=== PATIENT | male | born 1955 | race Caucasian/White ===

== ENCOUNTER 2016-09-05 10:12 | Inpatient (IN) | payer OTHER ==
[~2016-09-05] VITALS: Ht 181.9 cm; Wt 74.5 kg
[2016-09-05] MEDS ORDERED: PROP80TA PO (10:38)
[2016-09-05] MEDS ORDERED: AMLO10TA2 PO (10:38)
[2016-09-05] MEDS ORDERED: ASPI1TAB69 PO (10:39)
[2016-09-05] MEDS ORDERED: CHLO25TA2 PO (10:39)
[2016-09-12] VITALS (7 sets, daily range): BP systolic 140–186; BP diastolic 54–80; PULSE 39–74; RESP 16–18; TEMP 97.7–98.5; O2SAT 94–98
[2016-09-12] MEDS ORDERED: POVIDONE IODINE 5% (ANTISEPSIS KIT) 4 APPLICATIONS EACH NARE PRN (06:15)
[2016-09-12] MEDS ORDERED: SODIUM CHLORID 0.9% 500 ML IV PRN (06:15)
[2016-09-12] MEDS ORDERED: METOPROLOL TARTRATE 25 MG TAB PO PRN (06:15)
[2016-09-12] MEDS ORDERED: LACTATED RINGER'S 1000 ML IV PRN (06:15)
[2016-09-12] MEDS ORDERED: INSULIN HUMAN REGULAR 1,000 UNITS/10 ML VIAL SQ PRN (06:15)
[2016-09-12] MEDS ORDERED: CHLORHEXIDINE GLUCONATE 2 % 1 PACK (2 CLOTHS) TOPICAL PRN (06:15)
[2016-09-12] MEDS ORDERED: HEPARIN SODIUM - IV 10,000 UNITS/10 ML VIAL ONE (06:46)
[2016-09-12] MEDS ORDERED: PROTAMINE SULFATE 50 MG/5 ML VIAL ONE (06:46)
[2016-09-12] MEDS ORDERED: BUPIVACAINE/EPINEPHRINE 0.5% 50 ML VIAL ONE (06:48)
[2016-09-12] MEDS ORDERED: THROMBIN (TOPICAL) 20,000 UNIT SPRAY KIT ONE (07:14)
[2016-09-12] MEDS ORDERED: THROMBIN (TOPICAL) 5,000 UNIT VIAL ONE (07:16)
[2016-09-12] MEDS ORDERED: ACETAMINOPHEN 1000 MG/100 ML VIAL IV ONE (07:59)
[2016-09-12] MEDS ORDERED: THROMBIN (TOPICAL) 5,000 UNIT VIAL OTHER ONE (08:00)
[2016-09-12] MEDS ORDERED: FAMOTIDINE 20 MG/2 ML VIAL ONE (08:00)
[2016-09-12] MEDS ORDERED: LIDOCAINE HCL 1% 30 ML VIAL OTHER ONE (08:00)
[2016-09-12] MEDS ORDERED: HEPARIN SODIUM - IV 10,000 UNITS/10 ML VIAL IV ONE (08:00)
[2016-09-12] MEDS ORDERED: GELFOAM SIZE 100 OTHER ONE (08:00)
[2016-09-12] MEDS ORDERED: HEPARIN SODIUM - SQ 10,000 UNITS/ML VIAL OTHER ONE (08:00)
[2016-09-12] MEDS ORDERED: PROTAMINE SULFATE 50 MG/5 ML VIAL IV ONE (08:00)
[2016-09-12] MEDS ORDERED: MIDAZOLAM HCL 2 MG/2 ML VIAL ONE ×2 (08:00→12:11)
[2016-09-12] MEDS ORDERED: DEXAMETHASONE SOD PHOS 4 MG/ML VIAL ONE (08:00)
[2016-09-12] MEDS ORDERED: ceFAZolin 2 GM PREMIX 50 ML ONE (08:06)
[2016-09-12] MEDS ORDERED: LIDOCAINE HCL 1% 20 ML VIAL ONE (08:35)
[2016-09-12] MEDS ORDERED: SUGAMMADEX SODIUM 200 MG/2 ML VIAL IV PUSH ONE ×2 (11:21)
--- NOTE | 2016-09-12 11:36 | HHI.PR ---
Immediate Post Op Note Procedure Date: September 12, 2016 Pre Op Diagnosis: (1) Carotid stenosis, left Post Op Diagnosis: (1) Carotid stenosis, left Surgeon: Jenaro Townsend Community Action Worker(s): Amando Yeboah Procedure: Left CEA Findings: High grade plaque Additional Information: NA Complications: None Specimen(s) removed: Plaque Estimated blood loss: 100 cc Anesthesia: General, Analgesia Drains: None Fluids: 1800 cc crytsalloid IVF Tourniquet time (min at mmHg) NA Patient to: Other Patient Condition: Good Implant/Devices: Other Date/Time of Procedure: Other Jenaro Townsend DO September 12, 2016 11:36
[2016-09-12] MEDS ORDERED: SODIUM CHLORIDE 0.9% FLUSH 10 ML FLUSH IV FLUSH PRN (11:45)
[2016-09-12] MEDS ORDERED: Post-op Orders (for Pharmacy) MISC OTHER ONE (11:45)
[2016-09-12] MEDS ORDERED: LACTATED RINGER'S 1000 ML INJ 1,000 ML IV ONE (12:00)
[2016-09-12] MEDS ORDERED: ONDANSETRON HCL 4 MG/2 ML VIAL IV PUSH ONE (12:00)
[2016-09-12] MEDS ORDERED: PROPOFOL 200 MG/20 ML AMP IV ONE (12:00)
[2016-09-12] MEDS ORDERED: SODIUM CHLORID 0.9% 500 ML INJ 500 ML IV ONE (12:00)
[2016-09-12] MEDS ORDERED: ePHEDrine/NS 25 MG/5 ML SYR IV ONE (12:00)
[2016-09-12] MEDS ORDERED: SODIUM CHLOR 0.9% 250 ML INJ 250 ML IV ONE (12:00)
[2016-09-12] MEDS ORDERED: fentaNYL CITRATE 250 MCG/5 ML AMP ONE (12:11)
[2016-09-12] MEDS ORDERED: ONDANSETRON HCL 4 MG/2 ML VIAL IV PUSH PRN (15:15)
--- NOTE | 2016-09-12 15:29 | PD.VS.PN ---
Subjective POD #: 0 Procedure(s): L CEA Subjective/Hospital Course Pt c/o Mild discomfort CN 2-12 intact Pt alert and in NAD (Antoinette Dias) Objective Vitals/I&O Date Time Temp Pulse Resp B/P Pulse Ox O2 Delivery O2 Flow Rate FiO2 09/12/16 07:13 97.8 42 16 186/76 98 Exam: GCS 15 L Neck incision intact with surgical glue + S1,S2 CN 2-12 intact Pt w/o any neurological deficits Incisions: L side of neck/Intact with ecchymosis present at the incision line Laboratory Laboratory Tests Test 09/12/16 06:55 Blood Type O POSITIVE Antibody Screen NEGATIVE Blood Bank Comment (Antoinette Dias) Assessment and Plan Assessment: (1) Carotid stenosis, left Status: Acute Plan Plan PT/OOB tomorrow am D/C wills Clear liquid diet tonight Am labs Antoinette MARTE [facility]/Seriously [phone] (Antoinette Dias) Plan Patient is doing well. I agree with above. Possible DC 5/12 if urinates, keyla PO and neurologically intact. (Jenaro Townsend DO) Antoinette Dias September 12, 2016 15:29 Jenaro Townsend DO September 12, 2016 17:01
[2016-09-12] MEDS ORDERED: MORPHINE SULFATE 4 MG/ML INJ IV PRN (16:00)
[2016-09-12] MEDS: oxyCODONE/ACETAMINOPHEN 5 MG/325 MG TAB PO PRN (21:26)
[2016-09-12] MEDS: SODIUM CHLORIDE 0.9% FLUSH 10 ML FLUSH IV FLUSH SCH (22:12)
[2016-09-12] MEDS: hydrALAZINE HCL 20 MG/ML VIAL IV PUSH PRN (22:12)
[2016-09-13] VITALS (8 sets, daily range): BP systolic 128–182; BP diastolic 48–75; PULSE 47–68; RESP 16–18; TEMP 97–98.2; O2SAT 92–96
[2016-09-13] MEDS: oxyCODONE/ACETAMINOPHEN 5 MG/325 MG TAB PO PRN (04:15)
[2016-09-13 05:24] LABS: BICARBONATE 32.4 MEQ/L (21.0-32.0)
[2016-09-13] MEDS: SODIUM CHLORIDE 0.9% FLUSH 10 ML FLUSH IV FLUSH SCH ×2 (07:55→21:00)
[2016-09-13] MEDS: hydrALAZINE HCL 20 MG/ML VIAL IV PUSH PRN ×2 (07:55→09:15)
[2016-09-13] MEDS ORDERED: POTASSIUM CHLORIDE 25 MEQ EFFERVESCENT TAB PO ONE (09:30)
[2016-09-13] MEDS: cloNIDine HCL 0.2 MG TAB PO PRN (09:42)
--- NOTE | 2016-09-13 09:49 | PD.VS.PN ---
Subjective Subjective/Hospital Course Pt c/o frontal distribution headaches. Objective Vitals/I&O Date Time Temp Pulse Resp B/P Pulse Ox O2 Delivery O2 Flow Rate FiO2 09/13/16 09:23 95 Nasal Cannula 2.00 09/13/16 07:00 97.6 47 16 161/75 96 182/68 09/13/16 07:00 47 09/13/16 03:00 47 09/13/16 03:00 97.0 59 18 158/74 95 151/54 09/12/16 23:00 48 09/12/16 23:00 97.7 48 18 159/76 97 165/54 09/12/16 22:35 95 Nasal Cannula 2.00 09/12/16 19:00 51 09/12/16 19:00 98.1 74 16 178/78 95 178/69 09/12/16 16:04 45 09/12/16 15:47 98.5 43 16 151/80 94 165/71 09/12/16 14:00 98.0 39 18 140/73 94 09/12/16 14:00 39 Physical Exam left neck incision intact. CN2-12 intact. Laboratory Laboratory Tests Test 09/13/16 04:25 Sodium Level 136 Potassium Level 3.0 Chloride Level 96 Carbon Dioxide Level 32.4 Anion Gap 8 Blood Urea Nitrogen 22 Creatinine 0.99 Estimat Glomerular Filtration 76 Rate Random Glucose 126 Calcium Level 8.6 Assessment and Plan Assessment: (1) Carotid stenosis, left Status: Acute Plan Patient with post-op headaches after a left CEA. Otherwise, neurologically intact. May be hyperperfusion with hypertension. Will get stat CTA of head and neck. Hydralazine is not adequate so will place on a cardiene drip. Goal Systolic blood pressure less than 100mmHG. Will keep in ICU at this point. Spoke with the master ship, Dr. Yu. Jenaro Townsend DO, FACS [facility] SWATHI/Jenaro Petersen DO September 13, 2016 09:49
[2016-09-13] MEDS ORDERED: PNEUMOCOCCAL POLYVALENT INJ 25 MCG/0.5 ML SYR IM ONE (10:00)
[2016-09-13] MEDS ORDERED: IOHEXOL 350 MG/ML 10 ML VIAL (for RAD DIAG) IV ONE (10:16)
--- NOTE | 2016-09-13 11:00 | RADRPT ---
EXAM DATE/TIME: 09/13/2016 09:58 [facility] COMPARISON: No previous studies available for comparison. INDICATIONS : New onset headache. IV CONTRAST: 74 cc Omnipaque 350 (iohexol) IV; Cumulative dose for multiple exams. RADIATION DOSE: 14.85 CTDIvol (mGy); Combined studies MEDICAL HISTORY : Hypertension. Carotid stenosis. SURGICAL HISTORY : Left carotid surgery. ENCOUNTER: Initial ACUITY: 1 day PAIN SCALE: 4/10 LOCATION: Cranial TECHNIQUE: Volumetric scanning was performed using a multi-row detector CT scanner. The data was post processed with a variety of visualization algorithms including full volume maximum intensity projection, multi -planar sliding thin slab reformation, curved planar reformation, and surface rendering techniques. Using automated exposure control and adjustment of the mA and/or kV according to patient size, radiat ion dose was kept as low as reasonably achievable to obtain optimal diagnostic quality images. FINDINGS: CTA of the brain was performed in this patient status post endarterectomy with a headache. There is no evidence for major branch vessel occlusion, aneurysm or vascular displacement. Carotid i s patent to the cavernous sinus. There is no parenchymal hemorrhage. Ventricular size is appropriate. CONCLUSION: Negative CTA of the brain. Lexx Sanz MD FACR on September 13, 2016 at 10:45 Board Certified Radiologist. This report was verified electronically.
--- NOTE | 2016-09-13 11:30 | RADRPT ---
EXAM DATE/TIME: 09/13/2016 09:58 [facility] COMPARISON: No previous studies available for comparison. INDICATIONS : New onset of headache. IV CONTRAST: 74 cc Omnipaque 350 (iohexol) IV; Cumulative dose for multiple exams. RADIATION DOSE: 14.85 CTDIvol (mGy); Combined studies MEDICAL HISTORY : Hypertension. Carotid stenosis. SURGICAL HISTORY : Left carotid surgery. ENCOUNTER: Initial ACUITY: 1 day PAIN SCALE: 5/10 LOCATION: Left neck Elevated flow velocities and ICA/CCA ratios have been found to correlate with increased degrees of vessel stenosis, calculated as percentage of diameter relative to a normal segment of distal ICA/CCA. TECHNIQUE: Volumetric scanning was performed using a multirow detector CT scanner. The data was post processed with a variety of visualization algorithms including full-volume maximum intensity projection, multip lanar sliding thin-slab reformation, curved-planar reformation, and surface-rendering techniques. Us ing automated exposure control and adjustment of the mA and/or kV according to patient size, radiatio n dose was kept as low as reasonably achievable to obtain optimal diagnostic quality images. FINDINGS: Patient is status post carotid endarterectomy on the left. Subcutaneous air is present along with small amount of air in the operative site. Endarterectomy sit e is widely patent. Extensive calcification is present on the right unchanged from the preoperative study. The percentag e of stenosis is on the order 70%. CONCLUSION: 1. Small amount of air in the operative site on the left. 2. Stenosis on the right appears hemodynamically significant. Lexx Sanz MD FACR on September 13, 2016 at 11:22 Board Certified Radiologist. This report was verified electronically.
[2016-09-13] MEDS ORDERED: SODIUM PHOSPHATE INJ 30 MMOL in SODIUM CHLOR 0.9% 250 ML INJ 240 ML IV PRN (12:00)
[2016-09-13] MEDS ORDERED: MAGNESIUM OXIDE 400 MG TAB PO PRN (12:00)
[2016-09-13] MEDS ORDERED: POTASSIUM CHLORIDE 25 MEQ EFFERVESCENT TAB PO PRN (12:00)
[2016-09-13] MEDS ORDERED: POTASSIUM PHOSPHATE MONOBASIC 500 MG TAB PO/TUBE PRN (12:00)
[2016-09-13] MEDS ORDERED: POTASSIUM PHOSPHATE MONOBASIC 500 MG TAB PO PRN (12:00)
[2016-09-13] MEDS ORDERED: POTASSIUM CHLOR 20 MEQ PREMIX 100 ML IV PRN ×2 (12:00)
[2016-09-13] MEDS ORDERED: MAGNESIUM SULFATE INJ 4 GM in SODIUM CHLORIDE 0.9% INJ 92 ML IV PRN (12:00)
[2016-09-13] MEDS ORDERED: MAGNESIUM SULFATE INJ 2 GM in SODIUM CHLORIDE 0.9% INJ 96 ML IV PRN (12:00)
[2016-09-13] MEDS ORDERED: POTASSIUM CHLOR 40 MEQ PREMIX 100 ML IV PRN ×2 (12:00)
--- NOTE | 2016-09-13 12:48 | MB ---
cc: SUMMER MEZA M.D. DATE OF CONSULTATION: 09/13/2016 DATE OF : 1955 HISTORY OF PRESENT ILLNESS The patient is a 61-year-old male with past medical history of hypertension, who was admitted yesterday for left carotid stenosis and the patient underwent left carotid endarterectomy by Dr. Townsend. He had EBL of 100 mL and received 1.8 liters of crystalloids. The patient was complaining of frontal headaches and he underwent a stat. CTA of the brain with IV contrast which showed no evidence of any parenchymal hemorrhage. Also CTA of the neck showed a small amount of air in the operative site on the left. The patient was found hypertensive overnight and was started on a Cardene drip currently at 5 mg an hour. His blood pressure overall improved with current blood pressure of 132/53. Critical Care Medicine was consulted for critical care management. The patient denies any blurred vision, chest pain, shortness of breath or any constitutional symptoms. In addition he denies any GI symptoms. PAST MEDICAL HISTORY 1. Hypertension. 2. Left carotid stenosis. PAST SURGICAL HISTORY Status post left carotid endarterectomy on September 12, 2016. ALLERGIES No known drug allergies. FAMILY HISTORY Noncontributory. MEDICATIONS Reported medications include: 1. Aspirin. 2. Amlodipine. 3. Propranolol. 4. Chlorthalidone. REVIEW OF SYSTEMS As per HPI. The Rest of a review of systems is unremarkable. PHYSICAL EXAMINATION GENERAL: A 61-year-old male lying in bed in no acute respiratory distress. VITAL SIGNS: Afebrile. Pulse 61, blood pressure 132/53, saturation 93-95% on 2 liters of oxygen. HEENT: Atraumatic, normocephalic. Pupils equal, round and reactive to light and accommodation. Extraocular muscles intact. Conjunctiva pink. Non-icteric sclera. NECK: Supple. Left neck incision intact. No JVD. No adenopathy. CARDIOVASCULAR: Regular rate and rhythm. S1, S2. No murmurs, rubs or gallops noted. PULMONARY: Bilateral equal entry. No rales or wheezing. ABDOMEN: Soft, nontender, non-distended. Positive bowel sounds. EXTREMITIES: No clubbing, cyanosis or edema. NEUROLOGIC: No focal sensory deficit. LABORATORY DATA BMP: Sodium 136, potassium 3, chloride 96, CO2 32, BUN 22, creatinine 0.99, glucose 126, calcium 8.6. RADIOGRAPHIC STUDIES CTA of the brain showed no parenchymal hemorrhage. CTA of the neck showed a small amount of air in the operative site on the left. IMPRESSION 1. Respiratory insufficiency. 2. Left carotid stenosis, status post carotid endarterectomy. 3. Hypertension. 4. Hypokalemia. 5. Frontal headaches, improved. RECOMMENDATIONS 1. Monitor neuro status closely and neuro-checks per ICU protocol. CT scan of the brain showed no evidence of any parenchymal hemorrhage. 2. Continue with oxygen and maintain sats above 92%. 3. Continue with Cardene drip at 5 mg an hour. Monitor heart rate and blood pressure closely. 4. Continue with Norvasc 10 mg daily. The patient is on hydralazine 10 mg p.r.n. for systolic blood pressure greater than 180 or diastolic blood pressure greater than 100. 5. Monitor renal function and electrolyte replacement per protocol. Will need potassium replacement today. 6. On p.o. heart-healthy diet. 7. No indication for GI prophylaxis. 8. Monitor for signs of infections which include fever and WBC. Will panculture if he spikes a fever. 9. Monitor CBC. 10.Pain control. The patient is on morphine 2 mg IV q.2h. p.r.n. for pain. 11.Sliding scale insulin if needed for glycemic control. 12.DVT prophylaxis with SCDs. Start chemical anticoagulation prophylaxis once cleared by vascular surgery. 13.Further recommendations will be based on the hospital course. 14.Case discussed with Dr. Townsend and ICU nursing staff. MD BREE Hedrick/ALEM /12:07 PM /12:28 PM
[2016-09-13 13:40] LABS: AUTOMATED NEUTROPHIL # 12.9 TH/MM3 (1.8-7.7); BASOPHIL # 0.1 TH/MM3 (0-0.2); BASOPHIL % 0.4 % (0.0-2.0); HEMATOCRIT 39.1 % (39.0-51.0); HEMO FLAGS DIFF FINAL; LYMPH % 12.4 % (9.0-44.0); MEAN CELL VOLUME 92.4 FL (80.0-100.0); MEAN CORPUSCULAR HGB CONC 33.5 % (32.0-36.0); MONO % 7.7 % (0.0-8.0); NEUT % 79.5 % (16.0-70.0); PLATELET COUNT 212 TH/MM3 (150-450); RED BLOOD COUNT 4.24 MIL/MM3 (4.50-5.90); RED CELL DISTRIBUTION WIDTH 13.2 % (11.6-17.2); WHITE BLOOD COUNT 16.2 TH/MM3 (4.0-11.0)
[2016-09-13 14:05] LABS: ALT (GPT) 15 U/L (12-78); ANION GAP 7 MEQ/L (5-15); AST (GOT) 16 U/L (15-37); BICARBONATE 33.1 MEQ/L (21.0-32.0); BLOOD UREA NITROGEN 23 MG/DL (7-18); CHLORIDE 96 MEQ/L (98-107); GLOMERULAR FILTRATION RATE 74 ML/MIN (>89); MAGNESIUM 2.1 MG/DL (1.5-2.5); POTASSIUM 3.3 MEQ/L (3.5-5.1); SODIUM (NA) 136 MEQ/L (136-145)
[2016-09-13 14:07] LABS: ALKALINE PHOSPHATASE 86 U/L (45-117); TOTAL BILIRUBIN ADULT 0.4 MG/DL (0.2-1.0)
--- NOTE | 2016-09-13 14:59 | MP ---
cc: NO TOWNSEND DATE OF SURGERY: 09/12/2016 PREOPERATIVE DIAGNOSIS: High grade asymptomatic carotid artery stenosis. POSTOPERATIVE DIAGNOSIS: High grade asymptomatic carotid artery stenosis. OPERATION: Left carotid endarterectomy. ANESTHESIA: General endotracheal anesthesia. Under neurological monitoring with 15 cc of 0.50% Marcaine with epinephrine. SURGEON: No Townsend DO MESH CUTTER: Sam Yeboah. IV FLUIDS: 700 cc of crystalloid. ESTIMATED BLOOD LOSS: Around 100 cc blood loss URINE OUTPUT Moderate, 250 cc COMPLICATIONS: None DISPOSITION To PACU PROCEDURE The patient's left neck was prepped and draped in sterile fashion after being under general endotracheal monitoring and neuro monitoring. We did give the patient perioperative IV antibiotics. I made an incision along the left neck from the posterior to the angle of the mandible, from the tragus towards the sternal toward the sternal notch with a scalpel and Electrocautery I dissected down through the platysma and then retracted the sternocleidomastoid posteriorly. I tied off branches of the internal jugular vein with 2-0 silks small and medium clips as needed. I dissected free the common internal and external carotid arteries. I encircled the common carotid artery with the Remel tourniquet and placed a vessel loops around the internal and external carotid arteries and 2-0 silk loop as a around the superior thyroid artery. Once I mobilized the vessel we heparinized the patient to an ACT of greater than 200, it should be noted that the baseline neuro monitoring showed no depressions and amplitudes. I used an 11-blade Pastrana scissors in order to above the carotid, it should be noted that was a complex lesion with friable plaque and there was nearly occlusive. The carotid was freed of any plaque, it should be noted that the distal endpoint was initially tacked down with some multiple tacking sutures whenever I irrigated this area, I was still getting some lifting in the area, it appeared to be friable so I extended my incision distally on the internal carotid artery and then was able to get to a point were I felt that the intima was not was lifting and I felt like I had a good distal end point. Once I irrigated removed any fragments of the carotid artery. I sewed a bovine patch with a 5-0 Prolene in a continuous running fashion. Afterwards it did not appear to have any kinking and I had good diastolic flow, in the internal carotid artery and more triphasic flow in the external os. I did use two 6-0 Prolene correction sutures at the end of the case. I did use Surgicel and thrombin Gelfoam help out with hemostasis. Showed that I did clamp the internal and external carotid artery for control with the profunda clamps and then used a vessel loop to the external. There was no changes in neuro monitoring whenever I did clamp internal carotid artery and did not have to be a selective shunt. I felt that there was some oozing so we did get protamine as an ACT was approximately 270. The case was a concluding, the neck looked dry and we closed in layers of the 2-0 Vicryl absorbable suture of 3-0 Vicryl and a 4-0 Monocryl for the skin with Dermabond. The patient tolerated procedure well and is awaiting extubation out. DO MARISOL Melissa/pennie /11:27 AM /2:31 PM
[2016-09-13] MEDS: niCARdipine INJ 25 MG in SODIUM CHLOR 0.9% 250 ML INJ 250 ML IV SCH ×2 (16:31→21:10)
[2016-09-13] MEDS ORDERED: DOPamine INJ PREMIX 500 ML ONE (21:36)
[2016-09-14] VITALS (11 sets, daily range): BP systolic 115–183; BP diastolic 44–81; PULSE 53–70; RESP 18–20; TEMP 98.4–98.8; O2SAT 87–95
[2016-09-14 04:39] LABS: AUTOMATED NEUTROPHIL # 9.9 TH/MM3 (1.8-7.7); BASOPHIL # 0.2 TH/MM3 (0-0.2); BASOPHIL % 1.3 % (0.0-2.0); EOSINOPHIL % 0.3 % (0.0-4.0); HEMATOCRIT 34.1 % (39.0-51.0); HEMO FLAGS DIFF FINAL; LYMPH % 19.2 % (9.0-44.0); LYMPHOCYTE # 2.7 TH/MM3 (1.0-4.8); MEAN CELL VOLUME 93.1 FL (80.0-100.0); MEAN CORPUSCULAR HEMOGLOBIN 31.4 PG (27.0-34.0); MEAN CORPUSCULAR HGB CONC 33.7 % (32.0-36.0); MONO % 7.8 % (0.0-8.0); NEUT % 71.4 % (16.0-70.0); PLATELET COUNT 181 TH/MM3 (150-450); RED BLOOD COUNT 3.66 MIL/MM3 (4.50-5.90); RED CELL DISTRIBUTION WIDTH 13.3 % (11.6-17.2); WHITE BLOOD COUNT 13.9 TH/MM3 (4.0-11.0)
[2016-09-14 05:00] LABS: BICARBONATE 29.8 MEQ/L (21.0-32.0)
[2016-09-14 05:01] LABS: POTASSIUM 2.9 MEQ/L (3.5-5.1)
--- NOTE | 2016-09-14 07:30 | PD.VS.PN ---
Subjective POD #: 2 Procedure(s): L CEA Subjective/Hospital Course Headaches resolved. Anna cardiac diet No neuro events. CT yesterday negative. Objective Vitals/I&O Date Time Temp Pulse Resp B/P Pulse Ox O2 Delivery O2 Flow Rate FiO2 09/14/16 03:00 53 09/14/16 03:00 98.4 53 18 115/65 92 149/52 09/13/16 23:00 98.1 52 18 135/67 92 135/51 09/13/16 23:00 52 09/13/16 22:54 93 Nasal Cannula 2.00 09/13/16 19:00 56 09/13/16 19:00 98.0 60 18 143/58 92 143/56 09/13/16 15:00 98.2 50 16 128/64 92 128/48 09/13/16 15:00 50 09/13/16 11:00 98.2 68 18 142/75 95 144/55 09/13/16 11:00 68 09/13/16 09:23 95 Nasal Cannula 2.00 09/14/16 09/14/16 09/14/16 07:00 15:00 23:00 Intake Total 1653 ml Output Total 350 ml Balance 1303 ml Exam: L neck incision c/d/i Neuro intact w/ 09/06 strength throughout Laboratory Laboratory Tests Test 09/13/16 09/14/16 13:15 04:25 White Blood Count 16.2 13.9 Red Blood Count 4.24 3.66 Hemoglobin 13.1 11.5 Hematocrit 39.1 34.1 Mean Corpuscular Volume 92.4 93.1 Mean Corpuscular Hemoglobin 31.0 31.4 Mean Corpuscular Hemoglobin 33.5 33.7 Concent Red Cell Distribution Width 13.2 13.3 Platelet Count 212 181 Mean Platelet Volume 7.4 7.2 Neutrophils (%) (Auto) 79.5 71.4 Lymphocytes (%) (Auto) 12.4 19.2 Monocytes (%) (Auto) 7.7 7.8 Eosinophils (%) (Auto) 0.0 0.3 Basophils (%) (Auto) 0.4 1.3 Neutrophils # (Auto) 12.9 9.9 Lymphocytes # (Auto) 2.0 2.7 Monocytes # (Auto) 1.2 1.1 Eosinophils # (Auto) 0.0 0.0 Basophils # (Auto) 0.1 0.2 CBC Comment DIFF FINAL DIFF FINAL Differential Comment Sodium Level 136 137 Potassium Level 3.3 2.9 Chloride Level 96 98 Carbon Dioxide Level 33.1 29.8 Anion Gap 7 9 Blood Urea Nitrogen 23 24 Creatinine 1.02 0.84 Estimat Glomerular Filtration 74 92 Rate Random Glucose 150 99 Calcium Level 9.0 7.7 Phosphorus Level 1.2 Magnesium Level 2.1 Total Bilirubin 0.4 Aspartate Amino Transf 16 (AST/SGOT) Alanine Aminotransferase 15 (ALT/SGPT) Alkaline Phosphatase 86 Total Protein 6.7 Albumin 3.5 Assessment and Plan Assessment: (1) Carotid stenosis, left Status: Acute Plan Goal SBP < 160; wean gtts replete K Recheck labs in a.m. September d/c a-line if bp ok midday Discharge Planning Friday or Friday morning Hiro Carrasco MD September 14, 2016 07:30
[2016-09-14] MEDS ORDERED: MAGNESIUM HYDROXIDE SUSP 30 ML CUP PO PRN (08:00)
[2016-09-14] MEDS ORDERED: BISACODYL 10 MG SUPP RECTAL PRN (08:00)
[2016-09-14] MEDS: SODIUM CHLORIDE 0.9% FLUSH 10 ML FLUSH IV FLUSH SCH ×2 (09:00→20:15)
[2016-09-14] MEDS: DOCUSATE SODIUM 50 MG/SENNA 8.6 MG TAB PO SCH ×2 (09:49→20:14)
--- NOTE | 2016-09-14 10:02 | HHI.CCPN ---
Subjective Remarks/Hospital Course The patient is a 61-year-old male with a past medical history of hypertension who was admitted yesterday for left carotid stenosis and the patient underwent left carotid endarterectomy by Dr. Wilkins. He had EBL of 100 cc and received 1.8 L of crystalloid. The patient was complaining of frontal headaches and he underwent a stat CTA of the brain with IV contrast. For which showed no evidence of any parenchymal hemorrhage. Also CT of the neck shows small amount of air in the operative site on the left. Patient was found to be hypertensive overnight was started on a Cardene drip currently at 5 mg an hour. She overall improved with current blood pressure of 132/53. Critical care medicine was consulted for critical care management. The patient denies any blurred vision, chest pain, shortness of breath or any constitutional symptoms. He denies any GI symptoms. Subjective: 09/14: TMax 98.4 No acute events overnight the patient was maintained on Nicardipine infusion which was discontinued at 5 AM. The patient denies any diplopia, headaches or blurred vision at this time. VAS pain score this a.m. 0/ 10. The patient is tolerating a by mouth diet, and has been out of bed to chair without any issues. The patient was noted to have decrease O2 saturation ranging 88-94% on 4 L O2 nasal cannula. The patient revealed greater than 30- pack-year smoking history. Acapella and incentive spirometer instituted this a.m.. Objective Vital Signs Date Time Temp Pulse Resp B/P Pulse Ox O2 Delivery O2 Flow Rate FiO2 09/14/16 07:00 57 09/14/16 07:00 98.5 18 159/48 87 09/13/16 22:54 Nasal Cannula 2.00 Intake and Output 09/13/16 09/13/16 09/13/16 07:59 15:59 23:59 Intake Total 240 ml 1382 ml Output Total 400 ml 335 ml Balance -160 ml 1047 ml Result Diagram: 09/14/16 0425 09/14/16 0425 Imaging Last Impressions Neck CTA 09/13/16 0000 Signed Impressions: Service Date/Time: Tuesday, September 13, 2016 09:58 - CONCLUSION: 1. Small amount of air in the operative site on the left. 2. Stenosis on the right appears hemodynamically significant. Lexx Sanz MD FACR Head CTA 09/13/16 0000 Signed Impressions: Service Date/Time: Tuesday, September 13, 2016 09:58 - CONCLUSION: Negative CTA of the brain. Lexx Sanz MD FACR Objective Remarks GENERAL: This is a well-developed well-nourished male in no apparent distress SKIN: Warm and dry. Left surgical site Dermabond no erythema ,bruising, edema or drainage HEAD: Atraumatic. Normocephalic. EYES: Pupils equal and round. No scleral icterus. No injection or drainage. ENT: No nasal bleeding or discharge. Mucous membranes pink and moist. NECK: Trachea midline. No JVD. CARDIOVASCULAR: Normal rate, regular rhythm. RESPIRATORY: No accessory muscle use. Clear to auscultation. Breath sounds equal bilaterally. Nasal cannula 3 L/m GASTROINTESTINAL: Abdomen soft, non-tender, nondistended. No guarding. MUSCULOSKELETAL: Extremities without clubbing, cyanosis, or edema. No obvious deformities. NEUROLOGICAL: Awake and alert. RASS 0. No gross focal/sensory deficits. Follows commands in all 4 extremities. A/P Assessment and Plan 1. Respiratory insufficiency. 2. Left carotid stenosis, status post carotid endarterectomy. 3. Hypertension. 4. Hypokalemia. 5. Frontal headaches- resolved RECOMMENDATIONS 1. Monitor neuro status closely and neuro-checks per ICU protocol. 09/13- CT scan of the brain showed no evidence of any parenchymal hemorrhage. 2. Continue with oxygen and maintain sats above 92%. Utilize incentive spirometry every hour while awake and, Acapella 3. Discontinue Cardene infusion. Monitor heart rate and blood pressure closely. 4. Continue with Norvasc 10 mg daily. The patient is on hydralazine 10 mg p.r.n. for systolic blood pressure greater than 180 or diastolic blood pressure greater than 100. 5. Monitor renal function and electrolyte replacement per protocol. Replete potassium, follow-up BMP this afternoon 6. Continue heart-healthy diet. Add bowel regimen, Carole-Colace and MOM when necessary 7. No indication for GI prophylaxis. 8. Monitor for signs of infections which include fever and WBC. Will panculture if he spikes a fever. 9. Monitor CBC. 10.Pain control. The patient is on morphine 2 mg IV q.2h. p.r.n. for pain. 11.Sliding scale insulin if needed for glycemic control. 12.DVT prophylaxis with SCDs. Start chemical anticoagulation prophylaxis once cleared by vascular surgery. 13.Further recommendations will be based on the hospital course. Disposition Case discussed with ICU nursing staff. Level 3 Physician Aleksandra Lam MD September 14, 2016 10:02
[2016-09-14 12:44] LABS: BICARBONATE 29.8 MEQ/L (21.0-32.0)
[2016-09-14 12:50] LABS: POTASSIUM 2.9 MEQ/L (3.5-5.1)
[2016-09-14] MEDS ORDERED: POTASSIUM CHLORIDE 25 MEQ EFFERVESCENT TAB PO ONE (13:15)
[2016-09-14] MEDS: RESP: ALBUTEROL 2.5 MG/IPRATROPIUM 0.5 MG NEB (PRN) NEB ×2 (13:59→20:15)
[2016-09-14] MEDS ORDERED: PNEUMOCOCCAL POLYVALENT INJ 25 MCG/0.5 ML SYR IM ONE (14:30)
[2016-09-14 17:35] LABS: BLOOD GAS BASE EXCESS 2.6 mmol/L (-2-2); BLOOD GAS CARBOXYHEMOGLOBIN 1.3 % (0-4); BLOOD GAS HCO3 26 mmol/L (22-26); BLOOD GAS METHEMOGLOBIN 1.2 % (0-2); BLOOD GAS PCO2 34 mmHg (38-42); BLOOD GAS PO2 67 mmHg (61-120); BLOOD GAS TOTAL HGB 12.3 G/DL (12.0-16.0); TEMP CORR TO 98.6
[2016-09-14 17:36] LABS: BLOOD GAS O2 HGB SATURATION 92 % (90-100); CRITICAL VALUE NO; DRAW SITE ART LINE; LITER FLOW 6 L/M; OXYGEN DEVICE SIMPLE MASK; STAT YES
--- NOTE | 2016-09-14 18:02 | RADRPT ---
EXAM DATE/TIME: 09/14/2016 17:29 [facility] COMPARISON: No previous studies available for comparison. INDICATIONS : Respiratory failure. MEDICAL HISTORY : None. SURGICAL HISTORY : None. ENCOUNTER: Subsequent ACUITY: 3 days PAIN SCORE: 7/10 LOCATION: Bilateral chest FINDINGS: There is patchy opacity within the left mid and lower lung field and within the right lung base consi stent with probable pneumonia. Clinical correlation is recommended. The heart is mildly prominent. Degenerative changes are noted throughout the thoracic spine. CONCLUSION: 1. Patchy opacity within the left mid and lower lung field and right lung base consistent with proba ble pneumonia. Clinical correlation is recommended. 2. Mild cardiomegaly. 3. Degenerative changes throughout the thoracic spine. Hiro Mendoza MD on September 14, 2016 at 17:56 Board Certified Radiologist. This report was verified electronically.
[2016-09-14] MEDS: cloNIDine HCL 0.2 MG TAB PO PRN (20:14)
[2016-09-15] VITALS (15 sets, daily range): BP systolic 130–172; BP diastolic 42–86; PULSE 43–58; RESP 16–20; TEMP 98–98.7; O2SAT 90–97
[2016-09-15] MEDS ORDERED: Vancomycin Consult Pharmacy 1 EA OTHER SCH
[2016-09-15] MEDS ORDERED: VANCOMYCIN INJ 1,500 MG in SODIUM CHLORID 0.9% 500 ML INJ 500 ML IV SCH (01:00)
[2016-09-15] MEDS: PIPERACIL-TAZO 4.5 GM PREMIX 100 ML IV SCH ×4 (01:38→23:55)
[2016-09-15] MEDS: AZITHROMYCIN INJ 500 MG in SODIUM CHLOR 0.9% 250 ML INJ 250 ML IV SCH (01:54)
[2016-09-15] MEDS: oxyCODONE/ACETAMINOPHEN 5 MG/325 MG TAB PO PRN ×6 (02:45→23:53)
[2016-09-15 05:40] LABS: HEMATOCRIT 32.6 % (39.0-51.0); MEAN CELL VOLUME 92.9 FL (80.0-100.0); MEAN CORPUSCULAR HEMOGLOBIN 32.3 PG (27.0-34.0); MEAN CORPUSCULAR HGB CONC 34.8 % (32.0-36.0); PLATELET COUNT 179 TH/MM3 (150-450); RED BLOOD COUNT 3.51 MIL/MM3 (4.50-5.90); RED CELL DISTRIBUTION WIDTH 13.4 % (11.6-17.2); REVIEW FLAG FINAL; WHITE BLOOD COUNT 11.9 TH/MM3 (4.0-11.0)
[2016-09-15 06:00] LABS: BICARBONATE 28.7 MEQ/L (21.0-32.0); POTASSIUM 3.6 MEQ/L (3.5-5.1)
--- NOTE | 2016-09-15 07:44 | HHI.CCPN ---
Subjective Remarks/Hospital Course The patient is a 61-year-old male with a past medical history of hypertension who was admitted yesterday for left carotid stenosis and the patient underwent left carotid endarterectomy by Dr. Wilkins. He had EBL of 100 cc and received 1.8 L of crystalloid. The patient was complaining of frontal headaches and he underwent a stat CTA of the brain with IV contrast. For which showed no evidence of any parenchymal hemorrhage. Also CT of the neck shows small amount of air in the operative site on the left. Patient was found to be hypertensive overnight was started on a Cardene drip currently at 5 mg an hour. She overall improved with current blood pressure of 132/53. Critical care medicine was consulted for critical care management. The patient denies any blurred vision, chest pain, shortness of breath or any constitutional symptoms. He denies any GI symptoms. Subjective: 09/14: TMax 98.4 No acute events overnight the patient was maintained on Nicardipine infusion which was discontinued at 5 AM. The patient denies any diplopia, headaches or blurred vision at this time. VAS pain score this a.m. 0/ 10. The patient is tolerating a by mouth diet, and has been out of bed to chair without any issues. The patient was noted to have decrease O2 saturation ranging 88-94% on 4 L O2 nasal cannula. The patient revealed greater than 30- pack-year smoking history. Acapella and incentive spirometer instituted this a.m.. 09/15: Tmax 98.6. Yesterday afternoon the patient's respiratory status declined requiring face mask at 6 L/m., Despite compliant use of Acapella and incentive spirometry ABG and chest x-ray obtained. Chest x-ray suggestive of right middle and lower lung pneumonia process the patient was initiated on empiric antibiotics and received vancomycin, azithromycin, and Zosyn. Respiratory improvement this morning, the patient has been weaned to 4 L via nasal cannula, with continued bronchodilator treatments every 4 hours. Objective Vital Signs Date Time Temp Pulse Resp B/P Pulse Ox O2 Delivery O2 Flow Rate FiO2 09/15/16 04:00 98.0 45 16 140/67 94 152/42 09/15/16 04:00 Simple Mask 6.00 Intake and Output 09/14/16 09/14/16 09/15/16 08:00 16:00 00:00 Intake Total 1653 ml 1060 ml Output Total 350 ml 800 ml Balance 1303 ml 260 ml Result Diagram: 09/15/16 0515 09/15/16 0515 Other Results Laboratory Tests Test 09/14/16 17:20 Blood Gas Puncture Site ART LINE Blood Gas Patient Temperature 98.6 Blood Gas HCO3 26 mmol/L (22-26) Blood Gas Base Excess 2.6 mmol/L (-2-2) Blood Gas Oxygen Saturation 92 % (90-100) Arterial Blood pH 7.49 (7.380-7.420) Arterial Blood Partial 34 mmHg (38-42) Pressure CO2 Arterial Blood Partial 67 mmHg Pressure O2 (61-120) Arterial Blood Oxygen Content 16.0 Vol % (12.0-20.0) Arterial Blood 1.3 % (0-4) Carboxyhemoglobin Arterial Blood Methemoglobin 1.2 % (0-2) Blood Gas Hemoglobin 12.3 G/DL (12.0-16.0) Oxygen Delivery Device SIMPLE MASK Blood Gas Liter Flow 6 L/M Imaging Last Impressions Neck CTA 09/13/16 0000 Signed Impressions: Service Date/Time: Tuesday, September 13, 2016 09:58 - CONCLUSION: 1. Small amount of air in the operative site on the left. 2. Stenosis on the right appears hemodynamically significant. Lexx Sanz MD FACR Head CTA 09/13/16 0000 Signed Impressions: Service Date/Time: Tuesday, September 13, 2016 09:58 - CONCLUSION: Negative CTA of the brain. Lexx Sanz MD FACR Objective Remarks BP 151/68 P 75 O2 saturation 99% GENERAL: This is a well-developed well-nourished male in no apparent distress SKIN: Warm and dry. Left surgical site Dermabond no erythema ,bruising, edema or drainage HEAD: Atraumatic. Normocephalic. EYES: Pupils equal and round. No scleral icterus. No injection or drainage. ENT: No nasal bleeding or discharge. Mucous membranes pink and moist. NECK: Trachea midline. No JVD. CARDIOVASCULAR: Normal rate, regular rhythm. RESPIRATORY: No accessory muscle use. Clear to auscultation. Breath sounds equal bilaterally. Nasal cannula 4 L/m GASTROINTESTINAL: Abdomen soft, non-tender, nondistended. No guarding. MUSCULOSKELETAL: Extremities without clubbing, cyanosis, or edema. No obvious deformities. NEUROLOGICAL: Awake and alert. RASS 0. No gross focal/sensory deficits. Follows commands in all 4 extremities. A/P Assessment and Plan 1. Respiratory insufficiency. 2. Left carotid stenosis, status post carotid endarterectomy POD #3 3. Hypertension. 4. Hypokalemia-resolved 5. Frontal headaches- resolved RECOMMENDATIONS 1. Monitor neuro status closely and neuro-checks per ICU protocol. 09/13- CT scan of the brain showed no evidence of any parenchymal hemorrhage. 2. Continue with oxygen and maintain sats above 92%. Utilize incentive spirometry every hour while awake and, Acapella. IS 2000cc per breath 3. Discontinue Cardene infusion. Monitor heart rate and blood pressure closely. 4. Continue with Norvasc 10 mg daily. The patient is on hydralazine 10 mg p.r.n. for systolic blood pressure greater than 180 or diastolic blood pressure greater than 100.Cardene dc'd 09/14 5. Monitor renal function and electrolyte replacement per protocol. 6. Continue heart-healthy diet. Bowel regimen, Carole-Colace and MOM when necessary 7. No indication for GI prophylaxis. 8. Monitor for signs of infections which include fever and WBC. Will panculture if he spikes a fever. 9. Monitor CBC. 10.Pain control. The patient is on morphine 2 mg IV q.2h. p.r.n. for pain. 11.Sliding scale insulin if needed for glycemic control. 12.DVT prophylaxis with SCDs. Start chemical anticoagulation prophylaxis once cleared by vascular surgery. 13.Further recommendations will be based on the hospital course. Physical activity out of bed ambulate around the room to chair. Disposition Case discussed with ICU nursing staff. Level 3 Physician Aleksandra Lam MD September 15, 2016 07:44 Aleksandra Stephens MD September 15, 2016 07:44
[2016-09-15 08:06] LABS: BLOOD GAS BASE EXCESS 1.6 mmol/L (-2-2); BLOOD GAS CARBOXYHEMOGLOBIN 1.5 % (0-4); BLOOD GAS HCO3 26 mmol/L (22-26); BLOOD GAS O2 HGB SATURATION 94 % (90-100); BLOOD GAS OXYGEN CONTENT 15.1 Vol % (12.0-20.0); BLOOD GAS PCO2 39 mmHg (38-42); BLOOD GAS PO2 84 mmHg (61-120); BLOOD GAS TOTAL HGB 11.4 G/DL (12.0-16.0); CRITICAL VALUE NO; DRAW SITE ART LINE; LITER FLOW 4 L/M; OXYGEN DEVICE NASAL CANNULA; STAT NO; TEMP CORR TO 98.6
[2016-09-15] MEDS: DOCUSATE SODIUM 50 MG/SENNA 8.6 MG TAB PO SCH ×2 (08:24→21:35)
[2016-09-15] MEDS: SODIUM CHLORIDE 0.9% FLUSH 10 ML FLUSH IV FLUSH SCH ×2 (08:25→21:00)
[2016-09-15] MEDS: RESP: ALBUTEROL 2.5 MG/IPRATROPIUM 0.5 MG NEB (PRN) NEB ×4 (08:46→20:59)
[2016-09-15] MEDS: VANCOMYCIN 1,500 MG/NS 500 ML IV SCH ×2 (12:22)
--- NOTE | 2016-09-15 13:53 | PD.VS.PN ---
Subjective POD #: 3 Procedure(s): L CEA Subjective/Hospital Course Headaches resolved. Anna cardiac diet No neuro events. CXR w/ ? infiltrate but no sputum production, no fever, and perioperative leukocytosis resolving steadily Objective Vitals/I&O Date Time Temp Pulse Resp B/P Pulse Ox O2 Delivery O2 Flow Rate FiO2 09/15/16 11:54 95 Nasal Cannula 6.00 09/15/16 11:50 98.4 54 20 130/64 94 Arterial Line 09/15/16 11:42 95 Nasal Cannula 6.00 09/15/16 11:00 52 09/15/16 08:00 94 Nasal Cannula 3.00 09/15/16 08:00 98.2 45 20 140/74 94 151/62 09/15/16 08:00 95 Nasal Cannula 5.00 09/15/16 07:46 20 09/15/16 07:30 95 Nasal Cannula 4.00 09/15/16 07:00 43 09/15/16 04:00 98.0 45 16 140/67 94 152/42 09/15/16 04:00 95 Simple Mask 6.00 09/15/16 03:30 48 09/15/16 00:00 98.6 58 20 144/64 97 151/57 09/15/16 00:00 97 Simple Mask 8.00 09/14/16 23:40 57 09/14/16 20:15 95 Simple Mask 8.00 09/14/16 20:00 98.8 65 20 183/81 95 176/61 09/14/16 19:45 95 Simple Mask 8.00 09/14/16 19:45 64 09/14/16 17:50 94 Simple Mask 8.00 09/14/16 15:00 70 09/14/16 15:00 98.5 70 18 163/47 95 09/14/16 14:01 93 Simple Mask 10.00 09/14/16 14:00 93 Simple Mask 10.00 Exam: neuro intact L neck incision ok Laboratory Laboratory Tests Test 09/14/16 09/15/16 09/15/16 17:20 05:15 07:50 Blood Gas Puncture Site ART LINE ART LINE Blood Gas Patient Temperature 98.6 98.6 Blood Gas HCO3 26 26 Blood Gas Base Excess 2.6 1.6 Blood Gas Oxygen Saturation 92 94 Arterial Blood pH 7.49 7.43 Arterial Blood Partial 34 39 Pressure CO2 Arterial Blood Partial 67 84 Pressure O2 Arterial Blood Oxygen Content 16.0 15.1 Arterial Blood 1.3 1.5 Carboxyhemoglobin Arterial Blood Methemoglobin 1.2 1.0 Blood Gas Hemoglobin 12.3 11.4 Oxygen Delivery Device SIMPLE MASK NASAL CANNULA Blood Gas Liter Flow 6 4 White Blood Count 11.9 Red Blood Count 3.51 Hemoglobin 11.3 Hematocrit 32.6 Mean Corpuscular Volume 92.9 Mean Corpuscular Hemoglobin 32.3 Mean Corpuscular Hemoglobin 34.8 Concent Red Cell Distribution Width 13.4 Platelet Count 179 Mean Platelet Volume 7.4 Sodium Level 138 Potassium Level 3.6 Chloride Level 102 Carbon Dioxide Level 28.7 Anion Gap 7 Blood Urea Nitrogen 15 Creatinine 0.77 Estimat Glomerular Filtration 102 Rate Random Glucose 98 Calcium Level 8.3 Phosphorus Level 2.9 Magnesium Level 2.0 Date/Time Procedure Status Source Growth 09/15/16 07:56 Aerobic Blood Culture Received Blood Peripheral Pending 09/15/16 07:56 Anaerobic Blood Culture Received Blood Peripheral Pending 09/15/16 01:00 Legionella Antigen - Final Complete Urine Random Urine PRESUMPTIVE NEGATIVE FOR LEGIONELLA P... 09/15/16 01:00 Streptococcus pneumoniae Antigen (M - Final Complete Urine Random Urine PRESUMPTIVE NEGATIVE FOR STREPTOCOCCU... Assessment and Plan Assessment: (1) Carotid stenosis, left Status: Acute Plan Goal SBP < 160; would stop antibiotics unless febrile d/c tomorrow Discharge Planning Friday Hiro Carrasco MD September 15, 2016 13:53
[2016-09-16] VITALS (10 sets, daily range): BP systolic 139–172; BP diastolic 67–88; PULSE 49–78; RESP 18; TEMP 97.6–98.3; O2SAT 83–94
[2016-09-16] MEDS: RESP: ALBUTEROL 2.5 MG/IPRATROPIUM 0.5 MG NEB (PRN) NEB ×4 (00:52→20:55)
[2016-09-16] MEDS: VANCOMYCIN 1,500 MG/NS 500 ML IV SCH ×4 (00:59→12:25)
[2016-09-16] MEDS: AZITHROMYCIN INJ 500 MG in SODIUM CHLOR 0.9% 250 ML INJ 250 ML IV SCH (03:22)
[2016-09-16] MEDS: oxyCODONE/ACETAMINOPHEN 5 MG/325 MG TAB PO PRN ×2 (05:02→12:16)
[2016-09-16 06:27] LABS: HEMATOCRIT 32.3 % (39.0-51.0); MEAN CORPUSCULAR HEMOGLOBIN 31.8 PG (27.0-34.0); MEAN CORPUSCULAR HGB CONC 34.2 % (32.0-36.0); PLATELET COUNT 180 TH/MM3 (150-450); RED BLOOD COUNT 3.47 MIL/MM3 (4.50-5.90); RED CELL DISTRIBUTION WIDTH 13.2 % (11.6-17.2); REVIEW FLAG FINAL; WHITE BLOOD COUNT 11.4 TH/MM3 (4.0-11.0)
[2016-09-16 07:00] LABS: BICARBONATE 30.4 MEQ/L (21.0-32.0); POTASSIUM 3.4 MEQ/L (3.5-5.1)
--- NOTE | 2016-09-16 08:19 | HHI.CCPN ---
Subjective Remarks/Hospital Course The patient is a 61-year-old male with a past medical history of hypertension who was admitted yesterday for left carotid stenosis and the patient underwent left carotid endarterectomy by Dr. Wilkins. He had EBL of 100 cc and received 1.8 L of crystalloid. The patient was complaining of frontal headaches and he underwent a stat CTA of the brain with IV contrast. For which showed no evidence of any parenchymal hemorrhage. Also CT of the neck shows small amount of air in the operative site on the left. Patient was found to be hypertensive overnight was started on a Cardene drip currently at 5 mg an hour. She overall improved with current blood pressure of 132/53. Critical care medicine was consulted for critical care management. The patient denies any blurred vision, chest pain, shortness of breath or any constitutional symptoms. He denies any GI symptoms. Subjective: 09/14: TMax 98.4 No acute events overnight the patient was maintained on Nicardipine infusion which was discontinued at 5 AM. The patient denies any diplopia, headaches or blurred vision at this time. VAS pain score this a.m. 0/ 10. The patient is tolerating a by mouth diet, and has been out of bed to chair without any issues. The patient was noted to have decrease O2 saturation ranging 88-94% on 4 L O2 nasal cannula. The patient revealed greater than 30- pack-year smoking history. Acapella and incentive spirometer instituted this a.m.. 09/15: Tmax 98.6. Yesterday afternoon the patient's respiratory status declined requiring face mask at 6 L/m., Despite compliant use of Acapella and incentive spirometry ABG and chest x-ray obtained. Chest x-ray suggestive of right middle and lower lung pneumonia process the patient was initiated on empiric antibiotics and received vancomycin, azithromycin, and Zosyn. Respiratory improvement this morning, the patient has been weaned to 4 L via nasal cannula, with continued bronchodilator treatments every 4 hours. 09/16: The patient has been weaned off of nasal oxygen. O2 sat remains 92%. He continues on aggressive pulmonary toileting. Blood pressure was slightly elevated during the night, requiring PRN antihypertensive medication 1. Tentative plan today is to resume his home antihypertensive medications. Objective Vital Signs Date Time Temp Pulse Resp B/P Pulse Ox O2 Delivery O2 Flow Rate FiO2 09/16/16 07:36 97.7 60 18 172/88 94 09/16/16 07:36 Room Air 09/16/16 07:19 21 09/16/16 03:00 4.00 Intake and Output 09/15/16 09/15/16 09/15/16 07:59 15:59 23:59 Intake Total 990 ml 1900 ml Output Total 800 ml 890 ml Balance 190 ml 1010 ml Result Diagram: 09/16/16 0604 09/16/16 0604 Other Results Microbiology Date/Time Procedure Status Source Growth 09/15/16 01:00 Legionella Antigen - Final Complete Urine Random Urine PRESUMPTIVE NEGATIVE FOR LEGIONELLA P... 09/15/16 01:00 Streptococcus pneumoniae Antigen (M - Final Complete Urine Random Urine PRESUMPTIVE NEGATIVE FOR STREPTOCOCCU... Imaging Last Impressions Neck CTA 09/13/16 0000 Signed Impressions: Service Date/Time: Tuesday, September 13, 2016 09:58 - CONCLUSION: 1. Small amount of air in the operative site on the left. 2. Stenosis on the right appears hemodynamically significant. Lexx Sanz MD FACR Head CTA 09/13/16 0000 Signed Impressions: Service Date/Time: Tuesday, September 13, 2016 09:58 - CONCLUSION: Negative CTA of the brain. Lexx Sanz MD FACR Objective Remarks BP 162/ 78 P 75 O2 saturation 94% on room air GENERAL: This is a well-developed well-nourished male in no apparent distress SKIN: Warm and dry. Left surgical site Dermabond no erythema ,bruising, edema or drainage HEAD: Atraumatic. Normocephalic. EYES: Pupils equal and round. No scleral icterus. No injection or drainage. ENT: No nasal bleeding or discharge. Mucous membranes pink and moist. NECK: Trachea midline. No JVD. Left neck suture line without erythema, edema or drainage CARDIOVASCULAR: Normal rate, regular rhythm. RESPIRATORY: No accessory muscle use. Clear to auscultation. Breath sounds equal bilaterally. GASTROINTESTINAL: Abdomen soft, non-tender, nondistended. No guarding. MUSCULOSKELETAL: Extremities without clubbing, cyanosis, or edema. No obvious deformities. NEUROLOGICAL: Awake and alert. RASS 0. No gross focal/sensory deficits. Follows commands in all 4 extremities. Urinary Catheter: No A/P Assessment and Plan 1. Respiratory insufficiency-resolved 2. Left carotid stenosis, status post carotid endarterectomy POD #4 3. Hypertension-resolved 4. Hypokalemia-resolved 5. Frontal headaches- resolved RECOMMENDATIONS 1. Monitor neuro status closely and neuro-checks per ICU protocol. 09/13- CT scan of the brain showed no evidence of any parenchymal hemorrhage. 2. Continue with oxygen and maintain sats above 92%. Utilize incentive spirometry every hour while awake and, Acapella. IS 2000cc per breath 3. Discontinue Cardene infusion. Monitor heart rate and blood pressure closely. 4. Continue with Norvasc 10 mg daily. The patient is on hydralazine 10 mg p.r.n. for systolic blood pressure greater than 180 or diastolic blood. Resume antihypertensive medications home medications defer to vascular surgery pressure greater than 100.Cardene dc'd 09/14 5. Monitor renal function and electrolyte replacement per protocol. 6. Continue heart-healthy diet. Bowel regimen, Carole-Colace and MOM when necessary 7. No indication for GI prophylaxis. Bowel regimen for constipation, milk of magnesia PRN, Carole-Colace, will collect suppository if needed 8. Monitor for signs of infections which include fever and WBC. Will panculture if he spikes a fever. 9. Monitor CBC. 10.Pain control. The patient is on morphine 2 mg IV q.2h. p.r.n. for pain. 11.Sliding scale insulin if needed for glycemic control. 12.DVT prophylaxis with SCDs. Start chemical anticoagulation prophylaxis once cleared by vascular surgery. 13.Further recommendations will be based on the hospital course. Physical activity out of bed ambulate around the room to chair. Disposition Case discussed with ICU nursing staff. Patient's hospital course progressing well. Critical care medicine will sign off. Thank you for the consult. Level 2 Physician Aleksandra Lam MD September 16, 2016 08:18
[2016-09-16] MEDS: DOCUSATE SODIUM 50 MG/SENNA 8.6 MG TAB PO SCH ×2 (08:35→21:00)
[2016-09-16] MEDS: cloNIDine HCL 0.2 MG TAB PO PRN (08:35)
[2016-09-16] MEDS: PIPERACIL-TAZO 4.5 GM PREMIX 100 ML IV SCH ×2 (08:35→15:58)
[2016-09-16] MEDS: SODIUM CHLORIDE 0.9% FLUSH 10 ML FLUSH IV FLUSH SCH ×2 (08:36→21:00)
[2016-09-16] MEDS ORDERED: POTASSIUM CHLORIDE 10 MEQ CONTROLLED RELEASE TAB PO ONE (08:45)
--- NOTE | 2016-09-16 08:51 | PD.VS.PN ---
Subjective Subjective/Hospital Course left retroorbital pain 10/12 new this AM. no other neurological symptoms. Objective Vitals/I&O cn2-12 intact. motor and sensory intact. Date Time Temp Pulse Resp B/P Pulse Ox O2 Delivery O2 Flow Rate FiO2 09/16/16 07:36 97.7 60 18 172/88 94 09/16/16 07:36 94 Room Air 09/16/16 07:19 92 21 09/16/16 07:00 71 09/16/16 06:05 18 09/16/16 03:00 49 09/16/16 03:00 98.3 49 18 153/67 92 09/16/16 03:00 92 Nasal Cannula 4.00 09/15/16 23:00 98.7 51 18 172/69 93 09/15/16 23:00 93 Nasal Cannula 4.00 09/15/16 23:00 51 09/15/16 21:05 92 Nasal Cannula 4.00 09/15/16 19:00 94 Nasal Cannula 4.00 09/15/16 19:00 55 09/15/16 19:00 98.4 55 18 163/86 94 09/15/16 18:03 90 Nasal Cannula 2.00 09/15/16 15:46 95 Nasal Cannula 5.00 09/15/16 15:39 98.6 52 18 161/74 94 09/15/16 15:00 50 09/15/16 11:54 95 Nasal Cannula 6.00 09/15/16 11:50 98.4 54 20 130/64 94 Arterial Line 09/15/16 11:42 95 Nasal Cannula 6.00 09/15/16 11:00 52 Laboratory Laboratory Tests Test 09/16/16 06:04 White Blood Count 11.4 Red Blood Count 3.47 Hemoglobin 11.0 Hematocrit 32.3 Mean Corpuscular Volume 93.0 Mean Corpuscular Hemoglobin 31.8 Mean Corpuscular Hemoglobin 34.2 Concent Red Cell Distribution Width 13.2 Platelet Count 180 Mean Platelet Volume 7.5 Sodium Level 138 Potassium Level 3.4 Chloride Level 100 Carbon Dioxide Level 30.4 Anion Gap 8 Blood Urea Nitrogen 14 Creatinine 0.79 Estimat Glomerular Filtration 99 Rate Random Glucose 93 Calcium Level 8.2 Date/Time Procedure Status Source Growth 09/16/16 01:20 Gram Stain - Final Resulted Sputum Expectorated Sputum 09/16/16 01:20 Sputum Culture Resulted Sputum Expectorated Sputum Pending 09/15/16 07:56 Aerobic Blood Culture Received Blood Peripheral Pending 09/15/16 07:56 Anaerobic Blood Culture Received Blood Peripheral Pending 09/15/16 01:00 Legionella Antigen - Final Complete Urine Random Urine PRESUMPTIVE NEGATIVE FOR LEGIONELLA P... 09/15/16 01:00 Streptococcus pneumoniae Antigen (M - Final Complete Urine Random Urine PRESUMPTIVE NEGATIVE FOR STREPTOCOCCU... Assessment and Plan Assessment: (1) Carotid stenosis, left Status: Acute Plan Patient with hyperperfusion Headaches after left CEA. Goal for SBP less than 140mmHg. Will restart cardene drip and switch add to his BP med regimen. Patient needs IS at bedside. Jenaro Townsend Discharge Planning Friday Jenaro Townsend V. DO September 16, 2016 08:51
[2016-09-16] MEDS: niCARdipine INJ 25 MG in SODIUM CHLOR 0.9% 250 ML INJ 250 ML IV SCH ×5 (08:55→20:00)
[2016-09-16] MEDS ORDERED: traMADol HCL 50 MG TAB PO PRN (09:15)
[2016-09-16] MEDS ORDERED: ACETAMINOPHEN 500 MG CPLT PO PRN (11:30)
--- NOTE | 2016-09-16 14:59 | PD.VS.PN ---
Subjective Subjective/Hospital Course Pt resting in bed without complaints H/A resolved (Antoinette Dias) Objective Vitals/I&O Date Time Temp Pulse Resp B/P Pulse Ox O2 Delivery O2 Flow Rate FiO2 09/16/16 13:00 18 09/16/16 11:00 64 09/16/16 11:00 86 Room Air 09/16/16 11:00 97.6 64 18 139/69 86 09/16/16 07:36 97.7 60 18 172/88 94 09/16/16 07:36 94 Room Air 09/16/16 07:19 92 21 09/16/16 07:00 71 09/16/16 03:00 49 09/16/16 03:00 98.3 49 18 153/67 92 09/16/16 03:00 92 Nasal Cannula 4.00 09/15/16 23:00 98.7 51 18 172/69 93 09/15/16 23:00 93 Nasal Cannula 4.00 09/15/16 23:00 51 09/15/16 21:05 92 Nasal Cannula 4.00 09/15/16 19:00 94 Nasal Cannula 4.00 09/15/16 19:00 55 09/15/16 19:00 98.4 55 18 163/86 94 09/15/16 18:03 90 Nasal Cannula 2.00 09/15/16 15:46 95 Nasal Cannula 5.00 09/15/16 15:39 98.6 52 18 161/74 94 09/15/16 15:00 50 Physical Exam Pt A&OX3, NAD,GCS15 CN2-12 intact (Antoinette Dias) Laboratory Laboratory Tests Test 09/16/16 06:04 White Blood Count 11.4 Red Blood Count 3.47 Hemoglobin 11.0 Hematocrit 32.3 Mean Corpuscular Volume 93.0 Mean Corpuscular Hemoglobin 31.8 Mean Corpuscular Hemoglobin 34.2 Concent Red Cell Distribution Width 13.2 Platelet Count 180 Mean Platelet Volume 7.5 Sodium Level 138 Potassium Level 3.4 Chloride Level 100 Carbon Dioxide Level 30.4 Anion Gap 8 Blood Urea Nitrogen 14 Creatinine 0.79 Estimat Glomerular Filtration 99 Rate Random Glucose 93 Calcium Level 8.2 Date/Time Procedure Status Source Growth 09/16/16 01:20 Gram Stain - Final Resulted Sputum Expectorated Sputum 09/16/16 01:20 Sputum Culture Resulted Sputum Expectorated Sputum Pending 09/15/16 07:56 Aerobic Blood Culture - Preliminary Resulted Blood Peripheral NO GROWTH IN 1 DAY 09/15/16 07:56 Anaerobic Blood Culture - Preliminary Resulted Blood Peripheral NO GROWTH IN 1 DAY 09/15/16 01:00 Legionella Antigen - Final Complete Urine Random Urine PRESUMPTIVE NEGATIVE FOR LEGIONELLA P... 09/15/16 01:00 Streptococcus pneumoniae Antigen (M - Final Complete Urine Random Urine PRESUMPTIVE NEGATIVE FOR STREPTOCOCCU... (Antoinette Dias) Assessment and Plan Assessment: (1) Carotid stenosis, left Status: Acute Plan Plan Patient with hyperperfusion Headaches after left CEA. Goal for SBP less than 140mmHg. Pt on Cardene drip, will transition to PO BP med regimen. Continue IS therapy Antoinette MARTE [facility]/[place] [phone] (Antoinette Dias) Plan I agree with above. Plan to transition to PO meds. Patient with headaches in am with examination in the retro-orbital distribution. Once on PO meds without headaches can be discharged. Headaches definitely better than the other day. Jenaro Townsend DO, FACS [employer] Vascular [employer] /[place] (Jenaro Townsend DO) Antoinette Dias September 16, 2016 14:59 Jenaro Townsend DO September 16, 2016 16:00
[2016-09-16] MEDS: cloNIDine HCL 0.2 MG TAB PO SCH (21:00)
[2016-09-16] MEDS ORDERED: NITROGLYCERIN-DEXTROSE INJ 250 ML ONE (22:18)
[2016-09-16] MEDS ORDERED: NITROGLYCERIN-DEXTROSE 5% 250 ML for hypertension IV PRN (22:45)
--- NOTE | 2016-09-16 23:05 | RADRPT ---
EXAM DATE/TIME: 09/16/2016 22:50 [facility] COMPARISON: CHEST SINGLE AP, September 14, 2016, 17:29. INDICATIONS : Respiratory distress. MEDICAL HISTORY : None. SURGICAL HISTORY : None. ENCOUNTER: Subsequent ACUITY: 4 - 6 days PAIN SCORE: Non-responsive. LOCATION: Bilateral chest FINDINGS: 2 AP portable erect views of the chest were obtained and do not demonstrate bilateral hazy perihilar and bibasilar opacities which are increased from the prior study on the right. The heart size is mild ly prominent. There is no distinct effusion. The bony thorax is intact and there are multiple overlyi ng electrocardiogram leads. CONCLUSION: Interval increase in pulmonary opacities most consistent with pulmonary edema. Irineo Pérez MD on September 16, 2016 at 23:00 Board Certified Radiologist. This report was verified electronically.
[2016-09-16 23:41] LABS: BLOOD GAS BASE EXCESS 3.4 mmol/L (-2-2); BLOOD GAS CARBOXYHEMOGLOBIN 1.8 % (0-4); BLOOD GAS HCO3 27 mmol/L (22-26); BLOOD GAS METHEMOGLOBIN 1.2 % (0-2); BLOOD GAS O2 HGB SATURATION 86 % (90-100); BLOOD GAS OXYGEN CONTENT 13.3 Vol % (12.0-20.0); BLOOD GAS PCO2 38 mmHg (38-42); BLOOD GAS PO2 54 mmHg (61-120); BLOOD GAS TOTAL HGB 11.1 G/DL (12.0-16.0); TEMP CORR TO 98.6
[2016-09-16 23:43] LABS: CRITICAL VALUE YES; LITER FLOW 10 L/M; OXYGEN DEVICE SIMPLE
[2016-09-16 23:44] LABS: DRAW SITE RT RADIAL; NUMBER OF ARTERIAL PUNCTURES 1; STAT YES; ULNAR PULSE PRESENT
[2016-09-17] VITALS (12 sets, daily range): BP systolic 124–154; BP diastolic 52–80; PULSE 55–71; RESP 16–18; TEMP 97.6–98; O2SAT 90–96
[2016-09-17] MEDS: PIPERACIL-TAZO 4.5 GM PREMIX 100 ML IV SCH ×3 (00:13→16:05)
[2016-09-17] MEDS: FUROSEMIDE 40 MG/4 ML VIAL IV PUSH SCH ×2 (00:13→05:51)
[2016-09-17] MEDS: RESP: ALBUTEROL 2.5 MG/IPRATROPIUM 0.5 MG NEB (SCH) NEB ×6 (00:19→20:45)
[2016-09-17] MEDS: VANCOMYCIN 1,500 MG/NS 500 ML IV SCH ×4 (00:51→13:04)
[2016-09-17] MEDS: AZITHROMYCIN INJ 500 MG in SODIUM CHLOR 0.9% 250 ML INJ 250 ML IV SCH (03:28)
--- NOTE | 2016-09-17 06:54 | HHI.CCPN ---
Subjective Remarks/Hospital Course The patient is a 61-year-old male with a past medical history of hypertension who was admitted yesterday for left carotid stenosis and the patient underwent left carotid endarterectomy by Dr. Wilkins. He had EBL of 100 cc and received 1.8 L of crystalloid. The patient was complaining of frontal headaches and he underwent a stat CTA of the brain with IV contrast. For which showed no evidence of any parenchymal hemorrhage. Also CT of the neck shows small amount of air in the operative site on the left. Patient was found to be hypertensive overnight was started on a Cardene drip currently at 5 mg an hour. She overall improved with current blood pressure of 132/53. Critical care medicine was consulted for critical care management. The patient denies any blurred vision, chest pain, shortness of breath or any constitutional symptoms. He denies any GI symptoms. 09/14: TMax 98.4 No acute events overnight the patient was maintained on Nicardipine infusion which was discontinued at 5 AM. The patient denies any diplopia, headaches or blurred vision at this time. VAS pain score this a.m. 0/ 10. The patient is tolerating a by mouth diet, and has been out of bed to chair without any issues. The patient was noted to have decrease O2 saturation ranging 88-94% on 4 L O2 nasal cannula. The patient revealed greater than 30- pack-year smoking history. Acapella and incentive spirometer instituted this a.m.. 09/15: Tmax 98.6. Yesterday afternoon the patient's respiratory status declined requiring face mask at 6 L/m., Despite compliant use of Acapella and incentive spirometry ABG and chest x-ray obtained. Chest x-ray suggestive of right middle and lower lung pneumonia process the patient was initiated on empiric antibiotics and received vancomycin, azithromycin, and Zosyn. Respiratory improvement this morning, the patient has been weaned to 4 L via nasal cannula, with continued bronchodilator treatments every 4 hours. 09/16: The patient has been weaned off of nasal oxygen. O2 sat remains 92%. He continues on aggressive pulmonary toileting. Blood pressure was slightly elevated during the night, requiring PRN antihypertensive medication 1. Tentative plan today is to resume his home antihypertensive medications. Subjective: 09/17: Currently on high flow nasal cannula with saturations around 92%. Chest x -ray last revealed pulmonary edema and was placed on scheduled Lasix 40 mg IV every 6 hours. Still complains of headache intermittently/retro-orbital. Nitroglycerin drip started overnight Objective Vital Signs Date Time Temp Pulse Resp B/P Pulse Ox O2 Delivery O2 Flow Rate FiO2 09/17/16 04:00 97.6 55 18 128/63 93 09/17/16 04:00 Nasal Cannula 60 09/17/16 00:10 30.00 Intake and Output 09/16/16 09/16/16 09/17/16 08:00 16:00 00:00 Intake Total 1270 ml 2368 ml Output Total 1300 ml 750 ml Balance -30 ml 1618 ml Result Diagram: 09/16/16 0604 09/16/16 0604 Other Results Microbiology Date/Time Procedure Status Source Growth 09/16/16 01:20 Gram Stain - Final Resulted Sputum Expectorated Sputum 09/16/16 01:20 Sputum Culture Resulted Sputum Expectorated Sputum Pending 09/15/16 07:56 Aerobic Blood Culture - Preliminary Resulted Blood Peripheral NO GROWTH IN 1 DAY 09/15/16 07:56 Anaerobic Blood Culture - Preliminary Resulted Blood Peripheral NO GROWTH IN 1 DAY 09/15/16 01:00 Legionella Antigen - Final Complete Urine Random Urine PRESUMPTIVE NEGATIVE FOR LEGIONELLA P... 09/15/16 01:00 Streptococcus pneumoniae Antigen (M - Final Complete Urine Random Urine PRESUMPTIVE NEGATIVE FOR STREPTOCOCCU... Imaging Last Impressions Chest X-Ray 09/16/16 0000 Signed Impressions: Service Date/Time: Friday, September 16, 2016 22:50 - CONCLUSION: Interval increase in pulmonary opacities most consistent with pulmonary edema. Irineo Pérez MD Neck CTA 09/13/16 0000 Signed Impressions: Service Date/Time: Tuesday, September 13, 2016 09:58 - CONCLUSION: 1. Small amount of air in the operative site on the left. 2. Stenosis on the right appears hemodynamically significant. Lexx Sanz MD FACR Head CTA 09/13/16 0000 Signed Impressions: Service Date/Time: Tuesday, September 13, 2016 09:58 - CONCLUSION: Negative CTA of the brain. Lexx Sanz MD FACR Objective Remarks GENERAL: male, critically ill currently resting in bed in mild respiratory distress SKIN: Warm and dry. Left neck surgical site without erythema/well-healed HEAD: Atraumatic. Normocephalic. EYES: Pupils equal and round about 3 mm bilaterally and reactive. No scleral icterus. No injection or drainage. ENT: No nasal bleeding or discharge. Mucous membranes pink and moist. NECK: Trachea midline. No JVD. Left neck suture line without erythema or drainage. CARDIOVASCULAR: Bradycardic, RR. S1, S2. No S4. Without murmur RESPIRATORY: Crackles are appreciated throughout lung agudelo anteriorly and posteriorly. No wheezing. GASTROINTESTINAL: Abdomen soft, non-tender, nondistended. Positive bowel sounds appreciated MUSCULOSKELETAL: Extremities with trace nonpitting lower extremity edema. No obvious deformities. NEUROLOGICAL: Awake and alert. Strength is equal symmetric bilaterally. Normal sensation. A/P Assessment and Plan Neuro/Psych: Hypertensive re perfusion headache Acetaminophen 500 mg every 6 hours when necessary for fever Ultram 50 mg every 6/Percocet 5/325morphine 2 mg every 4 hours as needed for pain management Goal keep systolic blood pressure was 140 CV: Postop day #4 left carotid endarterectomy secondary to high-grade plaque for asymptomatic carotid stenosis - Dr. Owens Hypertension Currently on Norvasc at 10 mg by mouth daily and clonidine 0.2 mg by mouth twice a day for hypertension management Nitroglycerin drip at overnight currently at grams a minute Hydralazine 50 mg by mouth twice a day in attempt to wean off nitroglycerin drip Medications are propranolol 80 mg by mouth twice a day, Norvasc 10 mg by mouth daily and chlorthalidone 12.5 mg by mouth daily On aspirin 81 mg by mouth daily at home. Resume when okay with surgery Goal keep systolic blood pressure less than 140 per vascular surgery Resp: Acute respiratory failure secondary to pulmonary edema/pneumonia History of tobacco use Currently on high flow nasal cannula at 30 L FiO2 60% Wean as tolerated Continuing diuresis with Lasix 40 mg IV every 6 hours Follow-up chest x-ray Bronchodilator therapy every 4 hours ordered with tobacco therapy GI: Continue diet/heart healthy Carole-Colace twice a day for bowel regimen : Clinton currently is not indicated. Endo: Sliding-scale insulin if indicated to maintain euglycemia Renal: Monitor urine output Accurate I's and O's A.m. BMP pending Heme: Leukocytosis Normocytic anemia A.m. CBC still pending. ID: Day #3 vancomycin, Zosyn and Zithromax for possible right lower lobe pneumonia Pertinent cultures 09/16 - urine - no growth 09/15 - blood cultures 2 - no growth 09/15 -pneumococcal and Legionella urinary antigen - negative FEN: Hypokalemia A.m. electrolytes pending. Replace as clinically indicated MSK: PT evaluate and treat Access - Utilize peripheral IV. Central if indicated Prophylaxis - GI - not indicated - DVT - SCD/pharmacological prophylaxis when okay with vascular surgery Critical Care: The total critical care time was 30 minutes. Time to perform other separately billable procedures was not included in the critical care time. Levy Fitzpatrick MD September 17, 2016 06:54
[2016-09-17 07:24] LABS: AUTOMATED NEUTROPHIL # 7.5 TH/MM3 (1.8-7.7); BASOPHIL # 0.1 TH/MM3 (0-0.2); BASOPHIL % 1.2 % (0.0-2.0); EOSINOPHIL # 0.3 TH/MM3 (0-0.4); EOSINOPHIL % 2.8 % (0.0-4.0); HEMATOCRIT 30.8 % (39.0-51.0); HEMO FLAGS DIFF FINAL; LYMPH % 15.6 % (9.0-44.0); LYMPHOCYTE # 1.6 TH/MM3 (1.0-4.8); MEAN CELL VOLUME 92.4 FL (80.0-100.0); MEAN CORPUSCULAR HEMOGLOBIN 32.8 PG (27.0-34.0); MEAN CORPUSCULAR HGB CONC 35.5 % (32.0-36.0); NEUT % 71.4 % (16.0-70.0); PLATELET COUNT 204 TH/MM3 (150-450); RED BLOOD COUNT 3.33 MIL/MM3 (4.50-5.90); RED CELL DISTRIBUTION WIDTH 13.2 % (11.6-17.2); WHITE BLOOD COUNT 10.5 TH/MM3 (4.0-11.0)
[2016-09-17 07:39] LABS: ANION GAP 7 MEQ/L (5-15); AST (GOT) 15 U/L (15-37); BICARBONATE 32.3 MEQ/L (21.0-32.0); BLOOD UREA NITROGEN 14 MG/DL (7-18); CHLORIDE 98 MEQ/L (98-107); GLOMERULAR FILTRATION RATE 72 ML/MIN (>89); MAGNESIUM 1.9 MG/DL (1.5-2.5); POTASSIUM 3.4 MEQ/L (3.5-5.1); SODIUM (NA) 137 MEQ/L (136-145)
[2016-09-17 07:41] LABS: INTERNATIONAL NORMALIZED RATIO 1.1 RATIO; PROTHROMBIN TIME - PATIENT 12.5 SEC (9.8-11.6)
[2016-09-17 07:44] LABS: ALKALINE PHOSPHATASE 64 U/L (45-117); ALT (GPT) 16 U/L (12-78)
[2016-09-17 07:54] LABS: CREATINE KINASE 59 U/L (39-308)
[2016-09-17] MEDS: DOCUSATE SODIUM 50 MG/SENNA 8.6 MG TAB PO SCH ×2 (08:32→21:00)
[2016-09-17] MEDS: hydrALAZINE HCL 50 MG TAB PO SCH ×2 (08:32→21:16)
[2016-09-17] MEDS: SODIUM CHLORIDE 0.9% FLUSH 10 ML FLUSH IV FLUSH SCH ×2 (08:33→21:22)
[2016-09-17] MEDS ORDERED: MAGNESIUM SULFATE 1 GM PREMIX 100 ML IV ONE (09:00)
[2016-09-17] MEDS: cloNIDine HCL 0.2 MG TAB PO SCH ×2 (09:00→11:13)
[2016-09-17] MEDS: POTASSIUM CHLORIDE 20 MEQ CONTROLLED RELEASE TAB PO SCH (11:23)
[2016-09-17] MEDS ORDERED: PHARMACY ORDERED LAB ONE (12:45)
[2016-09-17] MEDS ORDERED: POTASSIUM CHLORIDE 10 MEQ CONTROLLED RELEASE TAB PO ONE (16:45)
[2016-09-17] MEDS: hydrALAZINE HCL 20 MG/ML VIAL IV PUSH PRN (17:20)
[2016-09-17] MEDS: oxyCODONE/ACETAMINOPHEN 5 MG/325 MG TAB PO PRN ×2 (17:37→21:20)
[2016-09-18] VITALS (14 sets, daily range): BP systolic 128–165; BP diastolic 63–83; PULSE 55–90; RESP 16–18; TEMP 97.6–97.9; O2SAT 93–96
[2016-09-18] MEDS: PIPERACIL-TAZO 4.5 GM PREMIX 100 ML IV SCH ×4 (00:06→23:18)
[2016-09-18] MEDS: cloNIDine HCL 0.2 MG TAB PO SCH ×3 (00:06→23:00)
[2016-09-18] MEDS: RESP: ALBUTEROL 2.5 MG/IPRATROPIUM 0.5 MG NEB (SCH) NEB ×9 (00:16→23:40)
[2016-09-18] MEDS: AZITHROMYCIN INJ 500 MG in SODIUM CHLOR 0.9% 250 ML INJ 250 ML IV SCH (00:43)
--- NOTE | 2016-09-18 04:57 | RADRPT ---
EXAM DATE/TIME: 09/18/2016 04:23 [facility] COMPARISON: CHEST PA & LAT, September 05, 2016, 11:07. CHEST SINGLE AP, September 14, 2016, 17:29. CHEST SINGLE AP, September 16, 2016, 22:50. INDICATIONS : Shortness of breath. MEDICAL HISTORY : None. SURGICAL HISTORY : None. ENCOUNTER: Subsequent ACUITY: 1 week PAIN SCORE: Non-responsive. LOCATION: Bilateral chest FINDINGS: A single AP portable erect view of the chest was obtained and demonstrates mild hazy opacity of the l kyle bases without significant change. The heart size remains at the upper limits of normal. There is mild hyperinflation. There is no effusion. The bony thorax is intact with overlying electrocardiogram leads. CONCLUSION: Hazy opacity remains at both lung bases. Irineo Pérez MD on September 18, 2016 at 4:54 Board Certified Radiologist. This report was verified electronically.
[2016-09-18] MEDS ORDERED: VANCOMYCIN INJ 1,250 MG in SODIUM CHLOR 0.9% 250 ML INJ 250 ML IV SCH (06:00)
[2016-09-18 06:01] LABS: BASOPHIL # 0.1 TH/MM3 (0-0.2); BASOPHIL % 0.9 % (0.0-2.0); EOSINOPHIL # 0.3 TH/MM3 (0-0.4); EOSINOPHIL % 4.1 % (0.0-4.0); HEMATOCRIT 31.9 % (39.0-51.0); HEMO FLAGS DIFF FINAL; LYMPH % 23.4 % (9.0-44.0); MEAN CELL VOLUME 93.4 FL (80.0-100.0); MEAN CORPUSCULAR HEMOGLOBIN 32.6 PG (27.0-34.0); MEAN CORPUSCULAR HGB CONC 34.9 % (32.0-36.0); MONO % 11.4 % (0.0-8.0); NEUT % 60.2 % (16.0-70.0); PLATELET COUNT 203 TH/MM3 (150-450); RED BLOOD COUNT 3.41 MIL/MM3 (4.50-5.90); RED CELL DISTRIBUTION WIDTH 13.3 % (11.6-17.2); WHITE BLOOD COUNT 8.4 TH/MM3 (4.0-11.0)
[2016-09-18 06:17] LABS: BICARBONATE 27.8 MEQ/L (21.0-32.0); MAGNESIUM 2.3 MG/DL (1.5-2.5); POTASSIUM 3.7 MEQ/L (3.5-5.1)
--- NOTE | 2016-09-18 07:08 | HHI.CCPN ---
Subjective Remarks/Hospital Course The patient is a 61-year-old male with a past medical history of hypertension who was admitted yesterday for left carotid stenosis and the patient underwent left carotid endarterectomy by Dr. Wilkins. He had EBL of 100 cc and received 1.8 L of crystalloid. The patient was complaining of frontal headaches and he underwent a stat CTA of the brain with IV contrast. For which showed no evidence of any parenchymal hemorrhage. Also CT of the neck shows small amount of air in the operative site on the left. Patient was found to be hypertensive overnight was started on a Cardene drip currently at 5 mg an hour. She overall improved with current blood pressure of 132/53. Critical care medicine was consulted for critical care management. The patient denies any blurred vision, chest pain, shortness of breath or any constitutional symptoms. He denies any GI symptoms. 09/14: TMax 98.4 No acute events overnight the patient was maintained on Nicardipine infusion which was discontinued at 5 AM. The patient denies any diplopia, headaches or blurred vision at this time. VAS pain score this a.m. 0/ 10. The patient is tolerating a by mouth diet, and has been out of bed to chair without any issues. The patient was noted to have decrease O2 saturation ranging 88-94% on 4 L O2 nasal cannula. The patient revealed greater than 30- pack-year smoking history. Acapella and incentive spirometer instituted this a.m.. 09/15: Tmax 98.6. Yesterday afternoon the patient's respiratory status declined requiring face mask at 6 L/m., Despite compliant use of Acapella and incentive spirometry ABG and chest x-ray obtained. Chest x-ray suggestive of right middle and lower lung pneumonia process the patient was initiated on empiric antibiotics and received vancomycin, azithromycin, and Zosyn. Respiratory improvement this morning, the patient has been weaned to 4 L via nasal cannula, with continued bronchodilator treatments every 4 hours. 09/16: The patient has been weaned off of nasal oxygen. O2 sat remains 92%. He continues on aggressive pulmonary toileting. Blood pressure was slightly elevated during the night, requiring PRN antihypertensive medication 1. Tentative plan today is to resume his home antihypertensive medications. 09/17: Currently on high flow nasal cannula with saturations around 92%. Chest x -ray last revealed pulmonary edema and was placed on scheduled Lasix 40 mg IV every 6 hours. Still complains of headache intermittently/retro-orbital. Nitroglycerin drip started overnight Subjective: 09/18: Transition from high flow nasal cannula to nasal cannula yesterday afternoon. Chest x-ray stable. Blood pressure better controlled. Denies shortness of breath currently. Headache in similar distribution Objective Vital Signs Date Time Temp Pulse Resp B/P Pulse Ox O2 Delivery O2 Flow Rate FiO2 09/18/16 03:00 97.6 59 18 146/78 93 09/18/16 03:00 Nasal Cannula 3.00 09/17/16 11:15 40 Intake and Output 09/17/16 09/17/16 09/18/16 08:00 16:00 00:00 Intake Total 2450 ml 2055 ml Output Total 2700 ml 2245 ml Balance -250 ml -190 ml Result Diagram: 09/18/16 0508 09/18/16 0508 Other Results Microbiology Date/Time Procedure Status Source Growth 09/16/16 01:20 Gram Stain - Final Resulted Sputum Expectorated Sputum 09/16/16 01:20 Sputum Culture - Preliminary Resulted Sputum Expectorated Sputum HEAVY GROWTH NORMAL RESPIRATORY MARIBEL... 09/15/16 07:56 Aerobic Blood Culture - Preliminary Resulted Blood Peripheral NO GROWTH IN 2 DAYS 09/15/16 07:56 Anaerobic Blood Culture - Preliminary Resulted Blood Peripheral NO GROWTH IN 2 DAYS 09/15/16 01:00 Legionella Antigen - Final Complete Urine Random Urine PRESUMPTIVE NEGATIVE FOR LEGIONELLA P... 09/15/16 01:00 Streptococcus pneumoniae Antigen (M - Final Complete Urine Random Urine PRESUMPTIVE NEGATIVE FOR STREPTOCOCCU... Imaging Last Impressions Chest X-Ray 09/18/16 0600 Signed Impressions: Service Date/Time: Sunday, September 18, 2016 04:23 - CONCLUSION: Hazy opacity remains at both lung bases. Irineo Pérez MD Neck CTA 09/13/16 0000 Signed Impressions: Service Date/Time: Tuesday, September 13, 2016 09:58 - CONCLUSION: 1. Small amount of air in the operative site on the left. 2. Stenosis on the right appears hemodynamically significant. Lexx Sanz MD FACR Head CTA 09/13/16 0000 Signed Impressions: Service Date/Time: Tuesday, September 13, 2016 09:58 - CONCLUSION: Negative CTA of the brain. Lexx Sanz MD FACR Objective Remarks GENERAL: male, critically ill currently resting in bed in NAD SKIN: Warm and dry. Left neck surgical site without erythema/well-healed HEAD: Atraumatic. Normocephalic. EYES: Pupils equal and round about 3 mm bilaterally and reactive. No scleral icterus. No injection or drainage. ENT: No nasal bleeding or discharge. Mucous membranes pink and moist. NECK: Trachea midline. No JVD. Left neck suture line without erythema or drainage. CARDIOVASCULAR: RRR. S1, S2. No S4. Without murmur RESPIRATORY: Crackles are appreciated throughout lung agudelo anteriorly and posteriorly. No wheezing. GASTROINTESTINAL: Abdomen soft, non-tender, nondistended. Positive bowel sounds appreciated MUSCULOSKELETAL: Extremities with trace nonpitting lower extremity edema. No obvious deformities. NEUROLOGICAL: Awake and alert. Strength is equal symmetric bilaterally. Normal sensation. A/P Assessment and Plan Neuro/Psych: Hypertensive re perfusion headache Acetaminophen 500 mg every 6 hours when necessary for fever Ultram 50 mg every 6/Percocet 5/325morphine 2 mg every 4 hours as needed for pain management Goal keep systolic blood pressure was 140 CV: Postop day #5 left carotid endarterectomy secondary to high-grade plaque for asymptomatic carotid stenosis - Dr. Owens Hypertension Currently on Norvasc at 10 mg by mouth daily and clonidine 0.2 mg by mouth twice a day for hypertension management Nitroglycerin drip has been turned off since yesterday afternoon Hydralazine 50 mg by mouth twice a day in attempt to wean off nitroglycerin drip Medications are propranolol 80 mg by mouth twice a day, Norvasc 10 mg by mouth daily and chlorthalidone 12.5 mg by mouth daily On aspirin 81 mg by mouth daily at home. Resume when okay with surgery Goal keep systolic blood pressure less than 140 per vascular surgery Resp: Acute respiratory failure secondary to pulmonary edema/pneumonia History of tobacco use Currently on nasal cannula 3 L Wean as tolerated Lasix diuresis has been completed Follow-up chest x-ray 09/18 revealed stable bilateral lower lobe infiltrates Bronchodilator therapy every 4 hours ordered with tobacco use and past GI: Continue diet/heart healthy Carole-Colace twice a day for bowel regimen : Clinton currently is not indicated. Endo: Sliding-scale insulin if indicated to maintain euglycemia Renal: Monitor urine output Accurate I's and O's A.m. BMP pending Heme: Normocytic anemia Hemoglobin stable ID: Day #4 vancomycin, Zosyn and Zithromax for possible right lower lobe pneumonia Discontinue vancomycin today and de-escalate antibiotic coverage Pertinent cultures 09/16 - urine - no growth 09/15 - blood cultures 2 - no growth 09/15 -pneumococcal and Legionella urinary antigen - negative FEN: Hypokalemia 30 mEq KCl 1 now. Replace as clinically indicated MSK: PT evaluate and treat Access - Utilize peripheral IV. Central if indicated Prophylaxis - GI - not indicated - DVT - SCD/pharmacological prophylaxis when okay with vascular surgery Critical Care: The total care time was 30 minutes. Time to perform other separately billable procedures was not included in the critical care time. Levy Fitzpatrick MD September 18, 2016 07:08
[2016-09-18] MEDS ORDERED: POTASSIUM CHLORIDE 10 MEQ CONTROLLED RELEASE TAB PO ONE (07:15)
[2016-09-18] MEDS: DOCUSATE SODIUM 50 MG/SENNA 8.6 MG TAB PO SCH ×2 (08:55→21:38)
[2016-09-18] MEDS: POTASSIUM CHLORIDE 20 MEQ CONTROLLED RELEASE TAB PO SCH (08:55)
[2016-09-18] MEDS: hydrALAZINE HCL 50 MG TAB PO SCH ×2 (08:55→21:38)
[2016-09-18] MEDS: SODIUM CHLORIDE 0.9% FLUSH 10 ML FLUSH IV FLUSH SCH ×2 (08:56→21:39)
--- NOTE | 2016-09-18 09:43 | PD.VS.PN ---
Subjective Subjective/Hospital Course Pt resting in bed without complaints Headache intermittently but less often. breathing improved. Objective Vitals/I&O Date Time Temp Pulse Resp B/P Pulse Ox O2 Delivery O2 Flow Rate FiO2 09/18/16 07:40 95 Nasal Cannula 3.00 09/18/16 07:30 97.9 62 18 147/69 93 09/18/16 07:00 96 Room Air 09/18/16 03:00 97.6 59 18 146/78 93 09/18/16 03:00 59 09/18/16 03:00 93 Nasal Cannula 3.00 09/17/16 23:00 97.9 68 18 124/63 94 09/17/16 23:00 68 09/17/16 23:00 94 Nasal Cannula 3.00 09/17/16 22:38 18 09/17/16 21:37 High Flow Nasal Cannula 09/17/16 20:45 Nasal Cannula 3.00 09/17/16 19:00 93 Nasal Cannula 3.00 09/17/16 19:00 59 09/17/16 19:00 97.8 59 18 140/68 93 09/17/16 15:30 97.7 71 16 154/80 90 09/17/16 15:30 62 09/17/16 15:30 90 Nasal Cannula 3.00 09/17/16 13:49 96 Nasal Cannula 2.00 09/17/16 11:15 97.8 63 16 151/70 94 09/17/16 11:15 94 Room Air 40 09/17/16 11:14 60 09/17/16 10:40 98 Nasal Cannula 40 09/17/16 10:00 98 Nasal Cannula 50 09/18/16 09/18/16 09/18/16 07:00 15:00 23:00 Intake Total 1820 ml Output Total 1250 ml Balance 570 ml Physical Exam Left neck incision intact. CN2-12 intact and neurologically intact. No wheezing or rhonchi Laboratory Laboratory Tests Test 09/17/16 09/17/16 09/18/16 12:50 15:46 05:08 Vancomycin Level Trough 22.1 Potassium Level 3.6 3.7 White Blood Count 8.4 Red Blood Count 3.41 Hemoglobin 11.1 Hematocrit 31.9 Mean Corpuscular Volume 93.4 Mean Corpuscular Hemoglobin 32.6 Mean Corpuscular Hemoglobin 34.9 Concent Red Cell Distribution Width 13.3 Platelet Count 203 Mean Platelet Volume 7.7 Neutrophils (%) (Auto) 60.2 Lymphocytes (%) (Auto) 23.4 Monocytes (%) (Auto) 11.4 Eosinophils (%) (Auto) 4.1 Basophils (%) (Auto) 0.9 Neutrophils # (Auto) 5.0 Lymphocytes # (Auto) 2.0 Monocytes # (Auto) 1.0 Eosinophils # (Auto) 0.3 Basophils # (Auto) 0.1 CBC Comment DIFF FINAL Differential Comment Sodium Level 136 Chloride Level 100 Carbon Dioxide Level 27.8 Anion Gap 8 Blood Urea Nitrogen 14 Creatinine 1.07 Estimat Glomerular Filtration 70 Rate Random Glucose 109 Calcium Level 8.8 Phosphorus Level 2.8 Magnesium Level 2.3 Date/Time Procedure Status Source Growth 09/16/16 01:20 Gram Stain - Final Complete Sputum Expectorated Sputum 09/16/16 01:20 Sputum Culture - Final Complete Sputum Expectorated Sputum HEAVY GROWTH NORMAL RESPIRATORY MARIBEL 09/15/16 07:56 Aerobic Blood Culture - Preliminary Resulted Blood Peripheral NO GROWTH IN 2 DAYS 09/15/16 07:56 Anaerobic Blood Culture - Preliminary Resulted Blood Peripheral NO GROWTH IN 2 DAYS 09/15/16 01:00 Legionella Antigen - Final Complete Urine Random Urine PRESUMPTIVE NEGATIVE FOR LEGIONELLA P... 09/15/16 01:00 Streptococcus pneumoniae Antigen (M - Final Complete Urine Random Urine PRESUMPTIVE NEGATIVE FOR STREPTOCOCCU... Imaging Last 48 hours Impressions Chest X-Ray 09/18/16 0600 Signed Impressions: Service Date/Time: Sunday, September 18, 2016 04:23 - CONCLUSION: Hazy opacity remains at both lung bases. Irineo Pérez MD Assessment and Plan Assessment: (1) Carotid stenosis, left Status: Acute Plan Plan for transfer to [facility]. 24 hours of blood pressure and pain control (headache) Continue pulmonary toilet. Discharge planning. Jenaro Townsend DO, FACS [facility] SWATHI/Jenaro Petersen DO September 18, 2016 09:43
[2016-09-18] MEDS: oxyCODONE/ACETAMINOPHEN 5 MG/325 MG TAB PO PRN ×3 (11:10→21:39)
[2016-09-18] MEDS: HYDROCHLOROTHIAZIDE 25 MG TAB PO SCH (11:20)
[2016-09-19] VITALS (30 sets, daily range): BP systolic 125–162; BP diastolic 64–85; PULSE 59–81; RESP 16–18; TEMP 97.7–98.2; O2SAT 94–96
[2016-09-19] MEDS: oxyCODONE/ACETAMINOPHEN 5 MG/325 MG TAB PO PRN ×4 (02:08→20:26)
[2016-09-19] MEDS: AZITHROMYCIN INJ 500 MG in SODIUM CHLOR 0.9% 250 ML INJ 250 ML IV SCH (02:09)
[2016-09-19] MEDS: RESP: ALBUTEROL 2.5 MG/IPRATROPIUM 0.5 MG NEB (SCH) NEB ×6 (03:00→23:32)
[2016-09-19 04:42] LABS: HEMATOCRIT 30.4 % (39.0-51.0); MEAN CORPUSCULAR HEMOGLOBIN 32.7 PG (27.0-34.0); MEAN CORPUSCULAR HGB CONC 35.2 % (32.0-36.0); PLATELET COUNT 209 TH/MM3 (150-450); RED BLOOD COUNT 3.27 MIL/MM3 (4.50-5.90); RED CELL DISTRIBUTION WIDTH 13.3 % (11.6-17.2); REVIEW FLAG FINAL; WHITE BLOOD COUNT 8.9 TH/MM3 (4.0-11.0)
[2016-09-19 05:11] LABS: BICARBONATE 28.7 MEQ/L (21.0-32.0); POTASSIUM 3.6 MEQ/L (3.5-5.1)
[2016-09-19] MEDS: DOCUSATE SODIUM 50 MG/SENNA 8.6 MG TAB PO SCH ×2 (08:20→20:25)
[2016-09-19] MEDS: POTASSIUM CHLORIDE 20 MEQ CONTROLLED RELEASE TAB PO SCH (08:20)
[2016-09-19] MEDS: SODIUM CHLORIDE 0.9% FLUSH 10 ML FLUSH IV FLUSH SCH ×2 (08:21→20:28)
[2016-09-19] MEDS: HYDROCHLOROTHIAZIDE 25 MG TAB PO SCH (08:21)
[2016-09-19] MEDS: hydrALAZINE HCL 50 MG TAB PO SCH ×2 (08:21→20:25)
[2016-09-19] MEDS: PIPERACIL-TAZO 4.5 GM PREMIX 100 ML IV SCH ×2 (08:21→15:32)
--- NOTE | 2016-09-19 09:58 | PD.VS.PN ---
Subjective Subjective/Hospital Course Pt sitting in chair eating breakfast NAD Pt w/o SOB Headache intermittently with no change in severity breathing improved (Antoinette Dias) Objective Vitals/I&O Date Time Temp Pulse Resp B/P Pulse Ox O2 Delivery O2 Flow Rate FiO2 09/19/16 09:00 74 09/19/16 08:00 70 09/19/16 07:26 96 Room Air 09/19/16 07:26 97.7 69 17 162/77 96 09/19/16 07:15 95 21 09/19/16 07:00 80 09/19/16 06:00 77 09/19/16 05:02 62 09/19/16 04:00 71 09/19/16 03:20 94 Room Air 09/19/16 03:20 97.8 64 16 139/64 94 09/19/16 03:00 59 09/19/16 02:00 59 09/19/16 01:00 62 09/19/16 00:00 61 09/18/16 23:10 97.9 61 16 128/63 93 09/18/16 23:10 93 Room Air 09/18/16 23:00 55 09/18/16 22:00 76 09/18/16 21:00 60 09/18/16 20:00 60 09/18/16 19:58 96 21 09/18/16 19:20 97.8 62 18 136/66 95 09/18/16 19:20 95 Room Air 09/18/16 19:00 69 09/18/16 15:34 96 Room Air 09/18/16 15:00 97.8 90 18 146/70 94 09/18/16 15:00 60 09/18/16 11:00 68 09/18/16 11:00 97.8 69 18 165/83 95 09/18/16 11:00 96 Room Air 09/19/16 09/19/16 09/19/16 06:59 14:59 22:59 Intake Total 830 ml Output Total 1275 ml Balance -445 ml Physical Exam GENERAL: Pt A&OX3, NAD, GCS15, pleasant 61/M SKIN: Warm and dry. Incision to left neck intact with no D/S/R NECK: Supple, No JVD or lymphadenopathy CARDIOVASCULAR: RRR,+S1,S2 RESPIRATORY: Breath sounds equal bilaterally. No accessory muscle use. (Antoinette Dias) Laboratory Laboratory Tests Test 09/19/16 03:28 White Blood Count 8.9 Red Blood Count 3.27 Hemoglobin 10.7 Hematocrit 30.4 Mean Corpuscular Volume 93.0 Mean Corpuscular Hemoglobin 32.7 Mean Corpuscular Hemoglobin 35.2 Concent Red Cell Distribution Width 13.3 Platelet Count 209 Mean Platelet Volume 7.9 Sodium Level 134 Potassium Level 3.6 Chloride Level 99 Carbon Dioxide Level 28.7 Anion Gap 6 Blood Urea Nitrogen 15 Creatinine 1.09 Estimat Glomerular Filtration 68 Rate Random Glucose 85 Calcium Level 9.1 Date/Time Procedure Status Source Growth 09/16/16 01:20 Gram Stain - Final Complete Sputum Expectorated Sputum 09/16/16 01:20 Sputum Culture - Final Complete Sputum Expectorated Sputum HEAVY GROWTH NORMAL RESPIRATORY MARIBEL 09/15/16 07:56 Aerobic Blood Culture - Preliminary Resulted Blood Peripheral NO GROWTH IN 3 DAYS 09/15/16 07:56 Anaerobic Blood Culture - Preliminary Resulted Blood Peripheral NO GROWTH IN 3 DAYS 09/15/16 01:00 Legionella Antigen - Final Complete Urine Random Urine PRESUMPTIVE NEGATIVE FOR LEGIONELLA P... 09/15/16 01:00 Streptococcus pneumoniae Antigen (M - Final Complete Urine Random Urine PRESUMPTIVE NEGATIVE FOR STREPTOCOCCU... Imaging Last 48 hours Impressions Chest X-Ray 09/18/16 0600 Signed Impressions: Service Date/Time: Sunday, September 18, 2016 04:23 - CONCLUSION: Hazy opacity remains at both lung bases. Irineo Pérez MD (Antoinette Dias) Assessment and Plan Assessment: (1) Carotid stenosis, left Status: Acute Plan Plan Discharge planning for tomorrow am Continue PT/OOB Discharge Planning tomorrow AM (Antoinette Dias) Plan I agree with the above A/P. Patient will arrange BP meds for discharge. DC in AM. Jenaro Townsend DO, FACS [facility] (Jenaro Townsend DO) Antoinette Dias September 19, 2016 09:57 Jenaro Townsend DO September 19, 2016 14:14
[2016-09-19] MEDS: cloNIDine HCL 0.2 MG TAB PO SCH (12:09)
[2016-09-20] VITALS (16 sets, daily range): BP systolic 131–144; BP diastolic 65–82; PULSE 50–72; RESP 16–18; TEMP 98.2–98.5; O2SAT 96
[2016-09-20] MEDS: PIPERACIL-TAZO 4.5 GM PREMIX 100 ML IV SCH ×2 (00:59→08:25)
[2016-09-20] MEDS: cloNIDine HCL 0.2 MG TAB PO SCH (00:59)
[2016-09-20] MEDS: oxyCODONE/ACETAMINOPHEN 5 MG/325 MG TAB PO PRN ×2 (01:16→08:25)
[2016-09-20] MEDS: AZITHROMYCIN INJ 500 MG in SODIUM CHLOR 0.9% 250 ML INJ 250 ML IV SCH (02:00)
[2016-09-20] MEDS: RESP: ALBUTEROL 2.5 MG/IPRATROPIUM 0.5 MG NEB (SCH) NEB ×2 (03:18→08:32)
[2016-09-20] MEDS ORDERED: PHARMACY ORDERED LAB ONE (05:45)
[2016-09-20] MEDS: hydrALAZINE HCL 50 MG TAB PO SCH (08:23)
[2016-09-20] MEDS: HYDROCHLOROTHIAZIDE 25 MG TAB PO SCH (08:23)
[2016-09-20] MEDS: DOCUSATE SODIUM 50 MG/SENNA 8.6 MG TAB PO SCH (08:24)
[2016-09-20] MEDS: POTASSIUM CHLORIDE 20 MEQ CONTROLLED RELEASE TAB PO SCH (08:24)
--- NOTE | 2016-09-20 08:58 | PD.VS.PN ---
Subjective Subjective/Hospital Course Pt sitting in chair eating breakfast Pt alert and in NAD No neurological deficits noted Objective Vitals/I&O Date Time Temp Pulse Resp B/P Pulse Ox O2 Delivery O2 Flow Rate FiO2 09/20/16 08:33 96 21 09/20/16 08:13 98.5 61 16 144/82 96 09/20/16 06:12 57 09/20/16 05:07 50 09/20/16 04:30 98.2 52 18 131/65 96 09/20/16 04:14 55 09/20/16 03:27 54 09/20/16 03:27 96 Room Air 09/20/16 02:02 57 09/20/16 01:00 68 09/20/16 00:19 58 09/20/16 00:00 98.2 59 18 139/72 96 09/19/16 23:39 96 Room Air 09/19/16 23:00 64 09/19/16 22:00 65 09/19/16 21:00 65 09/19/16 20:00 98.2 65 18 150/70 96 09/19/16 20:00 65 09/19/16 20:00 96 Room Air 09/19/16 19:31 94 21 09/19/16 19:00 65 09/19/16 18:19 80 09/19/16 17:04 74 09/19/16 16:00 72 09/19/16 15:26 98.2 69 17 125/73 95 09/19/16 15:26 95 Room Air 09/19/16 15:00 64 09/19/16 14:00 80 09/19/16 13:13 81 09/19/16 12:00 78 09/19/16 11:35 95 Room Air 09/19/16 11:35 97.8 79 17 160/85 95 09/19/16 11:00 79 09/19/16 10:03 78 09/19/16 09:00 74 09/20/16 09/20/16 09/20/16 07:00 15:00 23:00 Intake Total 1750 ml Output Total 1200 ml Balance 550 ml Physical Exam GENERAL: A&OX3, NAD SKIN: Warm and dry. incision to Left side of neck intact with surgical glue, No R/D/S present CARDIOVASCULAR: +S1,S2 RRR W/O M/G/R RESPIRATORY: BS CTA bilat CN 2-12 intact Laboratory Date/Time Procedure Status Source Growth 09/16/16 01:20 Gram Stain - Final Complete Sputum Expectorated Sputum 09/16/16 01:20 Sputum Culture - Final Complete Sputum Expectorated Sputum HEAVY GROWTH NORMAL RESPIRATORY MARIBEL Assessment and Plan Assessment: (1) Carotid stenosis, left Status: Acute Plan Plan D/C this am F/U with PCP this week F/U in our OPC in 1M with a surveillance Carotid duplex Discharge Planning Today Antoinette Dias September 20, 2016 08:58
[2016-09-20] MEDS: SODIUM CHLORIDE 0.9% FLUSH 10 ML FLUSH IV FLUSH SCH (09:00)
--- NOTE | 2016-09-20 09:14 | PD.VS.DC ---
Discharge Summary Admission Date: September 12, 2016 at 05:44 Discharge Date: September 20, 2016 Admission Diagnosis: (1) Carotid stenosis, left Discharge Diagnosis: (1) Carotid stenosis, left Status: Acute Brief History from admission Mr. Palafox is a 61-year-old male with a past medical history of hypertension who was admitted for left carotid stenosis and the patient underwent a left carotid endarterectomy Procedure(s): L CEA Significant Findings GENERAL: A&O X3, NAD SKIN: Warm and dry. Left neck incision intact with surgical glue NECK: Supple, No JVD CARDIOVASCULAR: RRR RESPIRATORY: BS CTA CN 2-12 intact/pt w/o any neurological deficits Laboratory Tests Test 09/17/16 09/18/16 09/19/16 12:50 05:08 03:28 Vancomycin Level Trough 22.1 MCG/ML (5.0-10.0) Red Blood Count 3.41 MIL/MM3 3.27 MIL/MM3 (4.50-5.90) (4.50-5.90) Hemoglobin 11.1 GM/DL 10.7 GM/DL (13.0-17.0) (13.0-17.0) Hematocrit 31.9 % 30.4 % (39.0-51.0) (39.0-51.0) Monocytes (%) (Auto) 11.4 % (0.0-8.0) Eosinophils (%) (Auto) 4.1 % (0.0-4.0) Monocytes # (Auto) 1.0 TH/MM3 (0-0.9) Estimat Glomerular Filtration 70 ML/MIN (>89) 68 ML/MIN (>89) Rate Random Glucose 109 MG/DL (74-106) Sodium Level 134 MEQ/L (136-145) Hospital Course: Mr. Palafox is a 61-year-old male with a past medical history of hypertension Pt was admitted for left carotid stenosis and the patient underwent a left carotid endarterectomy Pt developed post operative headache with HTN and was sent for stat CTA ( negative acute findings) Pt's b/p was monitored closely post operatively Pt stable and is w/o any further acute events Pt cleared for D/C Allergies Coded Allergies Type Severity Reaction Last Updated Verified Lisinopril Adverse Reaction Severe gagging cough 09/13/16 Yes Recent Impressions Chest X-Ray 09/18/16 0600 Signed Impressions: Service Date/Time: Sunday, September 18, 2016 04:23 - CONCLUSION: Hazy opacity remains at both lung bases. Irineo Pérez MD 06:00 18:00 06:00 18:00 06:00 18:00 Intake Total 1820 ml 1532 ml 830 ml 2470 ml Output Total 1250 ml 1200 ml 1275 ml 2375 ml Balance 570 ml 332 ml -445 ml 95 ml Intake Oral 660 ml 1100 ml 480 ml 1920 ml IV Total 1160 ml 432 ml 350 ml 550 ml Output Urine Total 1250 ml 1200 ml 1275 ml 2375 ml # Bowel Movements 0 1 0 0 Laboratory Tests Test 09/17/16 09/17/16 09/18/16 09/19/16 12:50 15:46 05:08 03:28 Vancomycin Level Trough 22.1 MCG/ML Potassium Level 3.6 MEQ/L 3.7 MEQ/L 3.6 MEQ/L White Blood Count 8.4 TH/MM3 8.9 TH/MM3 Red Blood Count 3.41 MIL/MM3 3.27 MIL/MM3 Hemoglobin 11.1 GM/DL 10.7 GM/DL Hematocrit 31.9 % 30.4 % Mean Corpuscular Volume 93.4 FL 93.0 FL Mean Corpuscular Hemoglobin 32.6 PG 32.7 PG Mean Corpuscular Hemoglobin 34.9 % 35.2 % Concent Red Cell Distribution Width 13.3 % 13.3 % Platelet Count 203 TH/MM3 209 TH/MM3 Mean Platelet Volume 7.7 FL 7.9 FL Neutrophils (%) (Auto) 60.2 % Lymphocytes (%) (Auto) 23.4 % Monocytes (%) (Auto) 11.4 % Eosinophils (%) (Auto) 4.1 % Basophils (%) (Auto) 0.9 % Neutrophils # (Auto) 5.0 TH/MM3 Lymphocytes # (Auto) 2.0 TH/MM3 Monocytes # (Auto) 1.0 TH/MM3 Eosinophils # (Auto) 0.3 TH/MM3 Basophils # (Auto) 0.1 TH/MM3 CBC Comment DIFF FINAL Differential Comment Sodium Level 136 MEQ/L 134 MEQ/L Chloride Level 100 MEQ/L 99 MEQ/L Carbon Dioxide Level 27.8 MEQ/L 28.7 MEQ/L Anion Gap 8 MEQ/L 6 MEQ/L Blood Urea Nitrogen 14 MG/DL 15 MG/DL Creatinine 1.07 MG/DL 1.09 MG/DL Estimat Glomerular Filtration 70 ML/MIN 68 ML/MIN Rate Random Glucose 109 MG/DL 85 MG/DL Calcium Level 8.8 MG/DL 9.1 MG/DL Phosphorus Level 2.8 MG/DL Magnesium Level 2.3 MG/DL Procedure Category Date Status Time Clonidine (Catapres) MED 09/17/16 In Process 11:00 Hydrochlorothiazide MED 09/18/16 In Process (Hydrodiuril) 10:00 Misc. Nursing MED 09/17/16 Complete Information 12:45 Potassium Chloride MED 09/17/16 In Process (Kcl) 11:00 Vancomycin Inj MED 09/18/16 Complete (Vancomycin Inj) 06:00 Patient Transfer ADMITTING 09/18/16 Transmitted 06:00 ^ Other Nursing Orders [facility] 09/17/16 In Process 15:06 Potassium Chloride MED 09/17/16 Complete (Kcl) 16:45 Potassium Chloride MED 09/18/16 Complete (Kcl) 07:15 Basic Metabolic Panel LAB 09/19/16 Complete (Bmp) 06:00 Cbc No Diff, Includes LAB 09/19/16 Complete Plts 06:00 Resp High Flow Nasal RSP 09/17/16 Complete Cannula Diet Regular Basic DIET 09/19/16 Transmitted Breakfast Attending Discharge DISCHARGE 09/20/16 Transmitted Order Vital Signs Date Time Temp Pulse Resp B/P Pulse Ox O2 Delivery O2 Flow Rate FiO2 09/20/16 08:33 96 21 09/20/16 08:13 98.5 61 16 144/82 96 09/20/16 06:12 57 09/20/16 05:07 50 09/20/16 04:30 98.2 52 18 131/65 96 09/20/16 04:14 55 09/20/16 03:27 54 09/20/16 03:27 96 Room Air 09/20/16 02:02 57 09/20/16 01:00 68 09/20/16 00:19 58 09/20/16 00:00 98.2 59 18 139/72 96 09/19/16 23:39 96 Room Air 09/19/16 23:00 64 09/19/16 22:00 65 09/19/16 21:00 65 09/19/16 20:00 98.2 65 18 150/70 96 09/19/16 20:00 65 09/19/16 20:00 96 Room Air 09/19/16 19:31 94 21 09/19/16 19:00 65 09/19/16 18:19 80 09/19/16 17:04 74 09/19/16 16:00 72 09/19/16 15:26 98.2 69 17 125/73 95 09/19/16 15:26 95 Room Air 09/19/16 15:00 64 09/19/16 14:00 80 09/19/16 13:13 81 09/19/16 12:00 78 09/19/16 11:35 95 Room Air 09/19/16 11:35 97.8 79 17 160/85 95 09/19/16 11:00 79 09/19/16 10:03 78 09/19/16 09:00 74 09/19/16 08:00 70 09/19/16 07:26 96 Room Air 09/19/16 07:26 97.7 69 17 162/77 96 09/19/16 07:15 95 21 09/19/16 07:00 80 09/19/16 06:00 77 09/19/16 05:02 62 09/19/16 04:00 71 09/19/16 03:20 94 Room Air 09/19/16 03:20 97.8 64 16 139/64 94 09/19/16 03:00 59 09/19/16 02:00 59 09/19/16 01:00 62 09/19/16 00:00 61 09/18/16 23:10 97.9 61 16 128/63 93 09/18/16 23:10 93 Room Air 09/18/16 23:00 55 09/18/16 22:00 76 09/18/16 21:00 60 09/18/16 20:00 60 09/18/16 19:58 96 21 09/18/16 19:20 97.8 62 18 136/66 95 09/18/16 19:20 95 Room Air 09/18/16 19:00 69 09/18/16 15:34 96 Room Air 09/18/16 15:00 97.8 90 18 146/70 94 09/18/16 15:00 60 09/18/16 11:00 68 09/18/16 11:00 97.8 69 18 165/83 95 09/18/16 11:00 96 Room Air 09/18/16 09:00 74 09/18/16 07:40 95 Nasal Cannula 3.00 09/18/16 07:30 97.9 62 18 147/69 93 09/18/16 07:00 96 Room Air 09/18/16 03:00 97.6 59 18 146/78 93 09/18/16 03:00 59 09/18/16 03:00 93 Nasal Cannula 3.00 09/17/16 23:00 97.9 68 18 124/63 94 09/17/16 23:00 68 09/17/16 23:00 94 Nasal Cannula 3.00 09/17/16 22:38 18 09/17/16 21:37 High Flow Nasal Cannula 09/17/16 20:45 Nasal Cannula 3.00 09/17/16 19:00 93 Nasal Cannula 3.00 09/17/16 19:00 59 09/17/16 19:00 97.8 59 18 140/68 93 09/17/16 15:30 97.7 71 16 154/80 90 09/17/16 15:30 62 09/17/16 15:30 90 Nasal Cannula 3.00 09/17/16 13:49 96 Nasal Cannula 2.00 09/17/16 11:15 97.8 63 16 151/70 94 09/17/16 11:15 94 Room Air 40 09/17/16 11:14 60 09/17/16 10:40 98 Nasal Cannula 40 09/17/16 10:00 98 Nasal Cannula 50 Discharge Condition: Good Discharge Disposition: Discharge Home Discharge Instructions: F/U with your PCP in 1W F/U in our OPC in 1M OK to shower NO Tub Baths Do not apply creams or lotions to incision site Call the office w/ any questions or concerns Antoinette MARTE [facility] [phone] Any questions or concerns: Call [facility] at [facility] [phone] Antoinette Dias September 20, 2016 09:14
[2016-09-20] MEDS ORDERED: CLON.2 PO (10:39)
[2016-09-20] MEDS ORDERED: POTA20TA5 PO (10:39)
[2016-09-20] MEDS ORDERED: HYDR50TA15 PO (10:39)
[2016-09-20] MEDS ORDERED: HYDR25TA5 PO (10:39)
== END 2016-09-20 12:15 | disposition home or self-care (01) | DRG 37 ==
LOC: EDUNIT# 09-09 13:00 → HSDI 09-12 05:44 → HCVR 09-12 11:55 → HCIN 09-18 09:05
PROVIDERS: ADMIT Surgery; ATTEND Surgery
PROC: 03UL0KZ Supplement Left Internal Carotid Artery with Nonautologous Tissue Substitute, Open Approach (ICD-10-PCS; 2016-09-12)
PROC: 03CL0ZZ Extirpation of Matter from Left Internal Carotid Artery, Open Approach (ICD-10-PCS; principal; 2016-09-12 08:29)
DX: I65.22 Occlusion and stenosis of left carotid artery (principal); J18.9 Pneumonia, unspecified organism; J96.00 Acute respiratory failure, unspecified whether with hypoxia or hypercapnia; J81.1 Chronic pulmonary edema; I10 Essential (primary) hypertension; E87.6 Hypokalemia; D64.9 Anemia, unspecified; F17.210 Nicotine dependence, cigarettes, uncomplicated; Z85.820 Personal history of malignant melanoma of skin; Z85.828 Personal history of other malignant neoplasm of skin; Z98.1 Arthrodesis status
CPT/HCPCS: 36600; 70496; 70498; 71010; 80048; 80053; 80162; 80202; 82550; 82805; 83605; 83735; 83880; 84100; 84132; 84484; 85025; 85027; 85384; 85610; 85730; 86850; 86900; 86901; 87040; 87070; 87205; 87449; 94150; 94620; 94640; 94664; 94667; 94668; C1768; J0131; J0360; J0456; J0690; J1100; J1265; J1644; J1940; J2250; J2405; J2543; J2720; J3010; J3370; J3475; J3480; J7040; J7050; J7120; Q9967

== ENCOUNTER → 2016-09-05 | Outpatient (CLI) | payer OTHER ==
[~2016-09-05] MED LIST: AMLO10TA2 PO; ASPI1TAB69 PO; CHLO25TA2 PO; CLON.2 PO; HYDR25TA5 PO; HYDR50TA15 PO; POTA20TA5 PO; PROP80TA PO
[2016-09-05 11:12] LABS: HEMATOCRIT 40.5 % (39.0-51.0); MEAN CELL VOLUME 93.4 FL (80.0-100.0); MEAN CORPUSCULAR HEMOGLOBIN 32.5 PG (27.0-34.0); MEAN CORPUSCULAR HGB CONC 34.8 % (32.0-36.0); PLATELET COUNT 211 TH/MM3 (150-450); RED BLOOD COUNT 4.34 MIL/MM3 (4.50-5.90); RED CELL DISTRIBUTION WIDTH 13.6 % (11.6-17.2); REVIEW FLAG FINAL; WHITE BLOOD COUNT 7.4 TH/MM3 (4.0-11.0)
[2016-09-05 11:18] LABS: PROTHROMBIN TIME - PATIENT 11.4 SEC (9.8-11.6)
--- NOTE | 2016-09-05 11:31 | RADRPT ---
EXAM DATE/TIME: 09/05/2016 11:07 [facility] COMPARISON: No previous studies available for comparison. INDICATIONS : Evaluate for pneumonia, pneumothorax, or communicable disease. Pre op for repair of his carotid arter y [id number] MEDICAL HISTORY : None. SURGICAL HISTORY : cervical fusion surgery ENCOUNTER: Initial ACUITY: 1 day PAIN SCORE: 0/10 LOCATION: Bilateral chest FINDINGS: PA and lateral views of the chest demonstrate the lungs to be symmetrically aerated without evidence of mass, infiltrate or effusion. Lungs are hyperinflated bilaterally. The cardiomediastinal contours are unremarkable. Osseous structures are intact. CONCLUSION: 1. Hyperinflation suggesting COPD. 2. No acute intrathoracic process. Ritesh Yu Jr., MD on September 05, 2016 at 11:28 Board Certified Radiologist. This report was verified electronically.
[2016-09-05 11:38] LABS: ALT (GPT) 24 U/L (12-78); ANION GAP 6 MEQ/L (5-15); AST (GOT) 20 U/L (15-37); BICARBONATE 36.5 MEQ/L (21.0-32.0); BLOOD UREA NITROGEN 19 MG/DL (7-18); CHLORIDE 95 MEQ/L (98-107); GLOMERULAR FILTRATION RATE 87 ML/MIN (>89); GLUCOSE,FASTING 125 MG/DL (74-99); POTASSIUM 3.3 MEQ/L (3.5-5.1); SODIUM (NA) 137 MEQ/L (136-145)
[2016-09-05 11:40] LABS: ALKALINE PHOSPHATASE 98 U/L (45-117); TOTAL BILIRUBIN ADULT 0.6 MG/DL (0.2-1.0)
--- NOTE | 2016-09-05 18:49 | EKG ---
Date Performed: 09/05/2016 Time Performed: 10:33:59 PTAGE: 61 years EKG: SINUS BRADYCARDIA POSSIBLE LEFT ATRIAL ENLARGEMENT BORDERLINE ECG NO PREVIOUS TRACING DOCTOR: Barber Munoz Interpretating Date/Time 09/05/2016 18:44:27
== END ==
LOC: CPRE 10:08
PROVIDERS: ATTEND Surgery
DX: Z01.810 Encounter for preprocedural cardiovascular examination (principal); Z01.812 Encounter for preprocedural laboratory examination; I77.9 Disorder of arteries and arterioles, unspecified; R00.1 Bradycardia, unspecified
CPT/HCPCS: 36415; 71020; 80053; 85027; 85610; 93005